=== PATIENT | female | born 1940 | race Caucasian/White ===

== ENCOUNTER → 2016-04-11 | Outpatient (CLI) | payer MEDICARE, BC ==
[~2016-04-11] VITALS: Ht 165.1 cm; Wt 79.5 kg
[~2016-04-11] MED LIST: ALBUTEROL0.83 MG/ML IH; ASPIRIN 81M81 MG/TA2 PO; ASPIRIN E.C. 8181 MG PO; ATIVAN0.5 MG PO; ATROVENT I0.2 MG/1 M IH; BRILINTA90 MG PO; CARDIZEM CD 12120 MG PO; CEPHALEXIN500 M1 PO; CLARITIN 1010 MG/TAB PO; CORGARD20 MG PO; DALIRESP500 MCG PO; ERYTHROMYCIN250 M2 PO; FLONASE NASAL S16 GM NS; LASIX 20MG TABL20 MG PO; LEVAQUIN 5500 MG/TA1 PO; LIPITOR 10MG10 MG PO; MEDROL 4MG DOSPA4 MG PO; MULTAQ400 MG PO; MYSOLINE 5050 MG/TAB PO; NADOLOL20 MG PO; NITROSTAT0.4 MG/TAB SL; NORCO 325 MG-51 TAB PO; PERFOROMIS20 MCG/2 M IH; PLAVIX 75MG TAB75 MG PO; PREDNISONE10 MG PO; PREDNISONE20 MG PO; PRILOSEC 20MG20 MG PO; PRILOSEC20 MG PO; PROAIR HFA0.09 MG/AC IH; PROTONIX 40MG T40 MG PO; PULMICORT0.5 MG/2 M IH; RT ALBUTER2.5 MG/0.5 IH; SINGULAIR10 MG PO; THEOPHYLLINE200 MG PO; TOPAMAX 25MG25 M1 PO; TOPAMAX50 MG PO; TYLENOL 8 HR PO; VALIUM 2MG T2 MG/TAB PO; VENTOLIN0.09 MG IH; ZIAC 10/6.25M1 UDTAB PO; ZITHROMAX Z PA250 MG PO; ZITHROMAX500 M2 PO; ZYRTEC 10MG10 MG PO; [UNRECOGNIZED DRUG - OTHER]
[2016-04-11 10:45] VITALS: BP 142/68; PULSE 94
[2016-04-11 11:30] VITALS: BP 141/70; PULSE 66
== END ==
LOC: COL.RAD 10:00
DX: M54.12 Radiculopathy, cervical region (principal)
CPT/HCPCS: J1100

== ENCOUNTER → 2017-08-30 | Outpatient (CLI) | payer MEDICARE, BC ==
[~2017-08-30] VITALS: Ht 167.6 cm; Wt 83.6 kg
[~2017-08-30] MED LIST changes: +ELIQUIS 5MG PO; +PRADAXA 150MG150 MG PO; +TIKOSYN0.25 MG PO; +ZANTAC 150MG T150 MG PO; +ZEBETA10 MG PO
[2017-08-30 09:53] VITALS: BP 172/84; PULSE 76
== END ==
LOC: COL.RAD 08:55
DX: C34.11 Malignant neoplasm of upper lobe, right bronchus or lung (principal); Z53.8 Procedure and treatment not carried out for other reasons

== ENCOUNTER 2018-02-08 08:55 | Day surgery (SDC) | payer MEDICARE, BC ==
[~2018-02-08] VITALS: Ht 167.6 cm; Wt 84.1 kg
[2018-02-08] MEDS ORDERED: ZEBETA10 MG PO (09:32)
[2018-02-08] MEDS ORDERED: MYSOLINE 5050 MG/TAB PO (09:32)
[2018-02-08] MEDS ORDERED: PROTONIX 40MG T40 MG PO (09:33)
[2018-02-08] MEDS ORDERED: LIPITOR 10MG10 MG PO (09:33)
[2018-02-08] MEDS ORDERED: ALAVERT10 M1 PO (09:33)
[2018-02-08] MEDS ORDERED: TIKOSYN0.25 MG PO (09:34)
[2018-02-08] MEDS ORDERED: ZANTAC 150MG T150 MG PO (09:34)
[2018-02-08] MEDS ORDERED: ASPIRIN 81M81 MG/TA2 PO (09:35)
[2018-02-08] MEDS ORDERED: PRADAXA 150MG150 MG PO (09:35)
[2018-02-08] MEDS ORDERED: ZESTORETIC 12.51 TA1 PO (09:35)
[2018-02-08] MEDS ORDERED: PERFOROMIS20 MCG/2 M IH (09:36)
[2018-02-08] MEDS ORDERED: PULMICORT0.5 MG/2 M IH (09:36)
[2018-02-08] MEDS ORDERED: ATROVENT I0.2 MG/1 M IH (09:37)
[2018-02-08] MEDS ORDERED: ALBUTEROL0.83 MG/ML IH (09:37)
[2018-02-08 09:38] VITALS: BP 138/64; PULSE 73; TEMP 97.9
[2018-02-08] MEDS ORDERED: PROAIR HFA0.09 MG/AC IH (09:38)
[2018-02-08 11:00] VITALS: BP 100/46; PULSE 77; TEMP 98.1
[2018-02-08 11:15] VITALS: BP 105/79; PULSE 69
[2018-02-08 11:30] VITALS: BP 122/56; PULSE 64
== END 2018-02-08 11:55 | disposition home or self-care (01) ==
LOC: SDCO 08:55
DX: K21.9 Gastro-esophageal reflux disease without esophagitis (principal); K22.2 Esophageal obstruction; K44.9 Diaphragmatic hernia without obstruction or gangrene; K22.70 Barrett's esophagus without dysplasia; K59.00 Constipation, unspecified; I10 Essential (primary) hypertension; E78.00 Pure hypercholesterolemia, unspecified; Z92.3 Personal history of irradiation; J43.9 Emphysema, unspecified; Z99.81 Dependence on supplemental oxygen; Z88.1 Allergy status to other antibiotic agents; Z79.01 Long term (current) use of anticoagulants; Z79.82 Long term (current) use of aspirin; Z90.710 Acquired absence of both cervix and uterus; Z85.118 Personal history of other malignant neoplasm of bronchus and lung; Z87.891 Personal history of nicotine dependence
CPT/HCPCS: C1726; J2704; J7030

== ENCOUNTER 2018-07-24 14:46 | Observation (INO) | payer MEDICARE, BC ==
[2018-07-24] VITALS (94 sets, daily range): BP systolic 120–136; BP diastolic 52–69; PULSE 68–73; TEMP 97.6–97.9; O2SAT 76–100
[~2018-07-24] VITALS: Ht 167.6 cm; Wt 87.0 kg
[~2018-07-24 14:46] MED LIST changes: +ALAVERT10 M1 PO; +ZESTORETIC 12.51 TA1 PO
[2018-07-24 15:21] LABS: BASO # 0.1 (0.0-0.2); BASO % 0.5 % (0.0-2.0); EOS # 0.1 (0.0-0.7); EOS % 0.5 % (0-4.0); GRAN % 71.4 % (42.2-75.2); HEMOGLOBIN 11.9 g/dl (12.5-16.0); LYMPH # 1.7 (1.2-3.4); LYMPH % 17.7 % (20.0-51.0); MEAN CELL VOLUME 86 fl (80.0-100.0); MEAN CORPUSCULAR HEMOGLOBIN 29 pg (27.0-31.0); MEAN CORPUSCULAR HGB CONC 33 g/dl (33.0-37.0); MEAN PLATELET VOLUME 10.1 fl (7.4-10.4); MONO # 0.9 (0.1-0.6); MONO % 9.4 % (1.7-9.3); PLATELET COUNT 283 K/mm3 (130-400); RED BLOOD COUNT 4.13 M/mm3 (4.10-5.30); REDCELL DISTRIBUTION WIDTH-CV 12.6 % (11.5-14.5)
[2018-07-24 15:23] LABS: INR 1.2 (0.8-3.0); PROTHROMBIN TIME 13.9 SECONDS (9.7-12.8)
[2018-07-24 15:24] LABS: HEMATOCRIT 35.7 % (37.0-47.0)
[2018-07-24] MEDS ORDERED: VOLTAREN GEL 1%1 TU TP (15:28)
[2018-07-24] MEDS ORDERED: FLONASEALLERGY NS (15:29)
[2018-07-24 15:33] LABS: ALANINE AMINOTRANSFERASE < 6 U/L (9-52); ALKALINE PHOSPHATASE 121 U/L (50-136); ANION GAP 11 mmol/L (7-16); AST,SGOT 23 U/L (15-37); BILIRUBIN,TOTAL 0.6 mg/dL (0.0-1.0); BLOOD UREA NITROGEN 7 mg/dL (7-17); C-REACTIVE PROTEIN 4.5 mg/dL (0.0-0.9); CARBON DIOXIDE 30 mmol/L (22-30); CREATININE, serum 0.71 (0.52-1.25); GLUCOSE 97 mg/dL (74-106); LIPASE 50 U/L (23-300); POTASSIUM 3.7 mmol/L (3.4-5.0); SODIUM 128 mmol/L (137-145); TOTAL PROTEIN 7.2 gm/dL (6.4-8.2)
[2018-07-24 15:36] LABS: CHLORIDE 87 mmol/L (98-107)
[2018-07-24 15:45] LABS: TROPONIN-I < 0.012 ng/mL (0.000-0.035)
[2018-07-24 15:53] LABS: COLLECTION METHOD CLEAN CATCH
[2018-07-24 16:00] LABS: PH 7 (5-8); SQUAMOUS EPITHELIAL 0-2 /hpf; URINE APPEARANCE Clear; URINE BACTERIA None Seen /hpf; URINE BILIRUBIN Negative (NEGATIVE); URINE BLOOD 2+ (NEGATIVE); URINE COLOR Straw; URINE GLUCOSE Negative (NEGATIVE); URINE KETONE Negative (NEGATIVE); URINE LEUKOCYTE ESTERASE Negative (NEGATIVE); URINE NITRATE Negative (NEGATIVE); URINE PROTEIN(semi-quant) Negative (NEGATIVE); URINE RBC 0-2 /hpf; URINE UROBILINOGEN Negative (NEGATIVE)
--- NOTE | 2018-07-24 18:30 | NUR ---
PATIENT ARRIVES TO ICU. CARDIAC MONITORS ATTACHED. PATIENT ORIENTED TO ROOM. CALL LIGHT WITHIN REACH.
--- NOTE | 2018-07-24 18:40 | NUR ---
DR. GLOVER CALLED WITH CARDIOLOGY CONSULT. ORDER FOR NITRO GTT AND NPO AT MIDNIGHT RECEIVED.
--- NOTE | 2018-07-24 19:00 | NUR ---
BEDSIDE REPORT GIVEN TO MAMADOU LOZANO
[2018-07-25] VITALS (644 sets, daily range): BP systolic 94–126; BP diastolic 39–52; PULSE 66–78; TEMP 97.8–98.7; O2SAT 43–100
--- NOTE | 2018-07-25 02:06 | NUR ---
CALLED DR. GLOVER PT'S BP HAD BEEN ON THE 90'S WITH THE LATEST ONE AT 95/40, CURRENTLY ON NITRO DRIP OF 5 MCG, PT DENIES PAIN AT THIS TIME AND VERBALIZED SHE FEELS OKAY. ORIGINAL ORDER OF NITRO DRIP DID NOT HAVE PARAMATERS. PERD DR. RAMÍREZ PHONE ORDER, WILL DISCONTINUE NITRO DRIP NOW. LATEST BP AT 0210 IS 101/53. WILL CONTINUE TO MONITOR.
[2018-07-25 06:10] LABS: BASO % 0.5 % (0.0-2.0); EOS # 0.1 (0.0-0.7); EOS % 1.6 % (0-4.0); GRAN # 4.1 (1.4-6.5); GRAN % 64.9 % (42.2-75.2); HEMOGLOBIN 10.2 g/dl (12.5-16.0); LYMPH # 1.6 (1.2-3.4); LYMPH % 24.6 % (20.0-51.0); MEAN CELL VOLUME 86 fl (80.0-100.0); MEAN CORPUSCULAR HEMOGLOBIN 29 pg (27.0-31.0); MEAN CORPUSCULAR HGB CONC 33 g/dl (33.0-37.0); MEAN PLATELET VOLUME 9.9 fl (7.4-10.4); MONO # 0.5 (0.1-0.6); MONO % 7.9 % (1.7-9.3); PLATELET COUNT 230 K/mm3 (130-400); RED BLOOD COUNT 3.55 M/mm3 (4.10-5.30); REDCELL DISTRIBUTION WIDTH-CV 12.6 % (11.5-14.5)
[2018-07-25 06:13] LABS: HEMATOCRIT 30.5 % (37.0-47.0)
[2018-07-25 06:28] LABS: ANION GAP 7 mmol/L (7-16); BLOOD UREA NITROGEN 6 mg/dL (7-17); CALCIUM 8.4 mg/dL (8.4-10.2); CARBON DIOXIDE 30 mmol/L (22-30); CHLORIDE 91 mmol/L (98-107); CHOLESTEROL 112 mg/dL (120-200); CHOLESTEROL RISK RATIO 3.2; CREATININE, serum 0.72 (0.52-1.25); GLUCOSE 104 mg/dL (74-106); HDL CHOLESTEROL 35 mg/dL; LDL CHOLESTEROL 59 mg/dL; POTASSIUM 3.7 mmol/L (3.4-5.0); SODIUM 128 mmol/L (137-145); TRIGLYCERIDE 89 mg/dL
[2018-07-25 06:42] LABS: TROPONIN-I < 0.012 ng/mL (0.000-0.035)
--- NOTE | 2018-07-25 07:07 | NUR ---
Bedside report recieved from MAMADOU Ferrer. Patient resting in bed with request for bathroom at this time and is assisted with this time. Nitro gtt off, disconnected and on standby. Care assumed.
--- NOTE | 2018-07-25 08:52 | NUR ---
Dr. Dai rounds at this time. Orders as entered CPOE.
--- NOTE | 2018-07-25 10:00 | NUR ---
Dr. Banegas rounds at this time. Orders as entered CPOE.
--- NOTE | 2018-07-25 10:48 | NUR ---
MANUELA student attended clinical rounds and followed up with patient to discuss discharge plan. Also present was patient's granddaughter. Patient lives independently near [place]. Patient PCP is Dr. Rosa Gaytan and she uses [facility] and the [facility]. Patient does not use any DME but is on 2 liters of oxygen at home and receives the oxygen from [facility] Patient reports independence with ADLs. Patient does not have a completed DPOA-HC but was interested in obtaining the form. SW student provided and explained the form. No identified needs at this time. SW to continue to follow.
--- NOTE | 2018-07-25 11:32 | NUR ---
Patient departs with Dynamics Expert at this time for Lexiscan.
--- NOTE | 2018-07-25 12:14 | NUR ---
First visit from the production corrugator. No needs right now.
--- NOTE | 2018-07-25 13:04 | NUR ---
Patient returns from [facility] and is returned to monitors. She denies chest pain with exam. Will call Dr. Banegas to update and discuss POC.
--- NOTE | 2018-07-25 15:30 | NUR ---
Report recieved from Sol CEDILLO. Patient laying in bed with eyes closed, offers no s/s pain or discomfort. Call light at side.
--- NOTE | 2018-07-25 19:10 | NUR ---
Bedside report received from Bhavani Zavaleta RN. Pt sitting in bed at this time with daughter Vannessa at bedside. Questions encouraged at this time.
--- NOTE | 2018-07-25 19:15 | NUR ---
Bedside report given to Blanca CEDILLO
--- NOTE | 2018-07-25 21:00 | NUR ---
Pt assessment complete. Pt resting in bed at this time. Glasses in place on face with personal belongings with in reach. NO skin issues noted and pt denies any known wounds, bruising or scratches. Denies SOA. Pt has a raspy voice noted in conversation. Makes wants and needs known with proper use of the call light demonstrated.
[2018-07-26] VITALS (294 sets, daily range): BP systolic 95–128; BP diastolic 42–72; PULSE 63–71; TEMP 97.9–98.5; O2SAT 70–100
[2018-07-26 05:22] LABS: BASO % 0.5 % (0.0-2.0); EOS # 0.1 (0.0-0.7); EOS % 1.9 % (0-4.0); GRAN # 3.6 (1.4-6.5); GRAN % 60.3 % (42.2-75.2); HEMOGLOBIN 11.2 g/dl (12.5-16.0); LYMPH # 1.7 (1.2-3.4); LYMPH % 28.2 % (20.0-51.0); MEAN CELL VOLUME 86 fl (80.0-100.0); MEAN CORPUSCULAR HEMOGLOBIN 29 pg (27.0-31.0); MEAN CORPUSCULAR HGB CONC 33 g/dl (33.0-37.0); MEAN PLATELET VOLUME 9.8 fl (7.4-10.4); MONO # 0.5 (0.1-0.6); MONO % 8.8 % (1.7-9.3); PLATELET COUNT 233 K/mm3 (130-400); RED BLOOD COUNT 3.89 M/mm3 (4.10-5.30); REDCELL DISTRIBUTION WIDTH-CV 12.5 % (11.5-14.5)
[2018-07-26 05:25] LABS: HEMATOCRIT 33.5 % (37.0-47.0)
[2018-07-26 05:33] LABS: CALCIUM 8.5 mg/dL (8.4-10.2); CREATININE, serum 0.66 (0.52-1.25); POTASSIUM 4.3 mmol/L (3.4-5.0)
--- NOTE | 2018-07-26 07:15 | NUR ---
Bedside report provided to Dangelo CEDILLO. Pt resting in bed at this time with 2 daughters at bedside.
[2018-07-26] MEDS ORDERED: IMDUR 30MG30 MG/TAB PO (11:36)
[2018-07-26] MEDS ORDERED: NITROSTAT0.4 MG/TAB SL (11:37)
--- NOTE | 2018-07-26 11:55 | NUR ---
Both Dr. Dai and Dr. Ball came by to see pt. Pt states if it is okay with MD's she feels good to and wants to go home. Cardiology started pt on new meds and will not be taking pt to cath at this time. Hosp- is okay to d/c pt after road test. VSS, pt denies pain, discomfort, any difficuly breathing. She remains on her previous home ordered 2L NC and tolerating well. Will continue to monitor and update MD as needed.
--- NOTE | 2018-07-26 15:00 | NUR ---
Pt d/c'ed home with family, pt denies pain and discomfort, denies SOB. IVs d/c'ed. D/C education and instruction given to pt and pt verbalized understanting.
== END 2018-07-26 15:00 | disposition home or self-care (01) ==
LOC: COL.ER 14:46 → ICU 16:49
PROVIDERS: Emergency Medicine; ADMIT Hospitalist
DX: R07.89 Other chest pain (principal); E87.1 Hypo-osmolality and hyponatremia; E87.8 Other disorders of electrolyte and fluid balance, not elsewhere classified; D64.9 Anemia, unspecified; R31.9 Hematuria, unspecified; J44.9 Chronic obstructive pulmonary disease, unspecified; G47.33 Obstructive sleep apnea (adult) (pediatric); E78.5 Hyperlipidemia, unspecified; G25.0 Essential tremor; I48.91 Unspecified atrial fibrillation; K21.9 Gastro-esophageal reflux disease without esophagitis; I10 Essential (primary) hypertension; I25.10 Atherosclerotic heart disease of native coronary artery without angina pectoris; I25.2 Old myocardial infarction; Z79.82 Long term (current) use of aspirin; Z85.118 Personal history of other malignant neoplasm of bronchus and lung; Z90.710 Acquired absence of both cervix and uterus; Z95.5 Presence of coronary angioplasty implant and graft; Z87.891 Personal history of nicotine dependence; Z82.49 Family history of ischemic heart disease and other diseases of the circulatory system; Z88.1 Allergy status to other antibiotic agents; Z88.8 Allergy status to other drugs, medicaments and biological substances
CPT/HCPCS: 99232-AI; A9500; G0378; J2405

== ENCOUNTER 2018-08-07 12:07 | Inpatient (IN) | payer MEDICARE, BC ==
[2018-08-07] VITALS (341 sets, daily range): BP systolic 137–159; BP diastolic 58–69; PULSE 76–97; TEMP 97–98.4; O2SAT 94–100
[~2018-08-07] VITALS: Ht 165.1 cm; Wt 85.7 kg
[~2018-08-07 12:07] MED LIST changes: +FLONASEALLERGY NS; +IMDUR 30MG30 MG/TAB PO; +LEVAQUIN 750MG750 M1 PO; +VOLTAREN GEL 1%1 TU TP
[2018-08-07 12:42] LABS: BASO # 0.1 (0.0-0.2); BASO % 0.6 % (0.0-2.0); EOS % 0.3 % (0-4.0); GRAN # 8.2 (1.4-6.5); GRAN % 86.1 % (42.2-75.2); HEMOGLOBIN 11.6 g/dl (12.5-16.0); LYMPH # 0.9 (1.2-3.4); LYMPH % 9.4 % (20.0-51.0); MEAN CELL VOLUME 89 fl (80.0-100.0); MEAN CORPUSCULAR HEMOGLOBIN 28 pg (27.0-31.0); MEAN CORPUSCULAR HGB CONC 32 g/dl (33.0-37.0); MEAN PLATELET VOLUME 9.6 fl (7.4-10.4); MONO # 0.3 (0.1-0.6); PLATELET COUNT 279 K/mm3 (130-400); RED BLOOD COUNT 4.09 M/mm3 (4.10-5.30); REDCELL DISTRIBUTION WIDTH-CV 13.2 % (11.5-14.5)
[2018-08-07 12:43] LABS: HEMATOCRIT 36.3 % (37.0-47.0)
[2018-08-07 12:46] LABS: INR 1.3 (0.8-3.0); PROTHROMBIN TIME 14.3 SECONDS (9.7-12.8)
[2018-08-07 12:54] LABS: ALANINE AMINOTRANSFERASE 10 U/L (9-52); ALBUMIN 4.1 gm/dL (3.5-5.0); ALKALINE PHOSPHATASE 102 U/L (50-136); ANION GAP 8 mmol/L (7-16); AST,SGOT 19 U/L (15-37); BILIRUBIN,TOTAL 0.3 mg/dL (0.0-1.0); BLOOD UREA NITROGEN 12 mg/dL (7-17); CALCIUM 8.9 mg/dL (8.4-10.2); CARBON DIOXIDE 29 mmol/L (22-30); CHLORIDE 98 mmol/L (98-107); CREATININE, serum 0.73 (0.52-1.25); GLUCOSE 91 mg/dL (74-106); POTASSIUM 3.9 mmol/L (3.4-5.0); SODIUM 135 mmol/L (137-145); TOTAL PROTEIN 7.2 gm/dL (6.4-8.2)
[2018-08-07 12:55] LABS: C-REACTIVE PROTEIN < 0.5 mg/dL (0.0-0.9)
[2018-08-07] MEDS ORDERED: PREDNISONE10 MG PO (13:32)
--- NOTE | 2018-08-07 14:43 | NUR ---
REPORT RECEIVED FROM NAHID CEDILLO FROM ED DEPARTMENT
--- NOTE | 2018-08-07 15:10 | NUR ---
PT BROUGHT FROM ED VIA STRETCHER. PT ABLE TO AMBULATE FROM STRETCHER TO ICU BED WITHOUT DIFFICULTY.
[2018-08-07 18:02] LABS: HEMOGLOBIN 11.2 g/dl (12.5-16.0)
[2018-08-07 18:03] LABS: HEMATOCRIT 34.4 % (37.0-47.0)
--- NOTE | 2018-08-07 20:49 | NUR ---
ASSESSMENT COMPLETED. PATIENT IS RESTING IN BED. DENIES PAIN AT THIS TIME. VITALS ARE WITHIN NORMAL LIMITS. WILL CONTINUE TO MONITOR PATIENT.
[2018-08-08] VITALS (401 sets, daily range): BP systolic 96–152; BP diastolic 56–89; PULSE 65–77; TEMP 97.7–98.4; O2SAT 95–100
--- NOTE | 2018-08-08 04:13 | NUR ---
patient has slept well throughout the night. patient had a few coughing spells but insisted this happens very often at home. denies pain at this time. vitals are within normal limits. will continue to monitor patient.
[2018-08-08 05:53] LABS: BASO % 0.2 % (0.0-2.0); GRAN # 5.6 (1.4-6.5); GRAN % 87.9 % (42.2-75.2); HEMOGLOBIN 10.6 g/dl (12.5-16.0); LYMPH # 0.6 (1.2-3.4); LYMPH % 9.2 % (20.0-51.0); MEAN CELL VOLUME 89 fl (80.0-100.0); MEAN CORPUSCULAR HEMOGLOBIN 28 pg (27.0-31.0); MEAN CORPUSCULAR HGB CONC 32 g/dl (33.0-37.0); MEAN PLATELET VOLUME 9.8 fl (7.4-10.4); MONO # 0.1 (0.1-0.6); MONO % 2.2 % (1.7-9.3); PLATELET COUNT 239 K/mm3 (130-400); RED BLOOD COUNT 3.74 M/mm3 (4.10-5.30); REDCELL DISTRIBUTION WIDTH-CV 13.2 % (11.5-14.5)
[2018-08-08 05:56] LABS: HEMATOCRIT 33.2 % (37.0-47.0)
[2018-08-08 06:08] LABS: CALCIUM 8.5 mg/dL (8.4-10.2); CREATININE, serum 0.61 (0.52-1.25)
--- NOTE | 2018-08-08 07:00 | NUR ---
Bedside report received from MAMADOU Chaudhry.
--- NOTE | 2018-08-08 07:43 | NUR ---
gave report to [facility] and aneesh, director nursing service.
--- NOTE | 2018-08-08 09:48 | NUR ---
Initial visit; Patient thanked Electrical Logging Operator for looking in on her and wishing her well and keeping her in v/stol landing signal officer's prayers.
--- NOTE | 2018-08-08 10:49 | NUR ---
MANUELA kelly attended clinical rounds and met with patient to dicuss discharge plan. Patient lives alone in [place]. Patient's PCP is Dr. Rosa Gaytan and she uses [facility] or the [facility]. Patient and patient's daughter report that patient saw both Dr. Rosa Gaytan and Dr. Talha Gaytan on 07/31. Patient is on 2L of oxygen at home and receives the oxygen from [facility]. Patient does not have a DPOA-HC completed. MANUELA kelly provided the form to her during her last stay and patient reports she is still thinking about what to do. Patient plans to return home upon discharge. No identified needs at this time. Patient is to move upstairs today if bed is available.
--- NOTE | 2018-08-08 16:30 | NUR ---
Plan for bronchoscopy at 1600 08/09/18. Patient and anesthesia aware.
--- NOTE | 2018-08-08 16:54 | NUR ---
SHAD RN REPORTING AT BEDSIDE PT'S BRONCHOSCOPY WILL BE 1600.
--- NOTE | 2018-08-08 17:06 | NUR ---
PATIENT TRANSFERRED TO MEDICAL FLOOR. REPORT GIVEN TO MAMADOU SOLORIO.
--- NOTE | 2018-08-08 20:14 | NUR ---
Pt resting in bed, family in room, no C/O pain at this time, shift assessments complete, left Pt call light in reach, bed in lowest position.
[2018-08-09 03:58] VITALS: BP 144/58; PULSE 81; TEMP 98
--- NOTE | 2018-08-09 05:24 | NUR ---
Pt slept through the night, no C/O pain, Vs have remained stable.
[2018-08-09 07:38] VITALS: BP 153/61; PULSE 62; TEMP 98
--- NOTE | 2018-08-09 08:38 | NUR ---
Pt assessment complete. Pt is sitting up in bed, just finished with breakfast. Pt denies any pain at this time. Pt denies SOB at rest, currently on 2L O2 via NC. Plan to have bronch at 1600 discussed with patient. Pt denies any N/V. No needs at this time. Call light within reach. Will continue to monitor.
--- NOTE | 2018-08-09 10:42 | NUR ---
Follow-up visit; Patient states she is doing better and thanked Payment Collector for offering her encouragement and God's blessings.
[2018-08-09 12:42] VITALS: BP 144/55; PULSE 74; TEMP 98.1
--- NOTE | 2018-08-09 13:17 | NUR ---
SW and SW student attended clinical rounds. The patient is to discharge today, 08/09. SW followed up with the patient and patient's daughter, Vonnie, to review discharge plan and to discuss home health services. The patient reports that she does not need home health and that she is not interested in it at this time. No additional needs at this time.
--- NOTE | 2018-08-09 14:26 | NUR ---
Discharge paperwork and instructions reviewed with patient. IV to LAC dc'd, catheter tip intact. All questions answered at this time. No further needs.
--- NOTE | 2018-08-09 15:17 | NUR ---
Pt walked out of facility at this time.
== END 2018-08-09 15:18 | disposition home or self-care (01) | DRG 378 ==
LOC: COL.ER 12:07 → ICU 13:53 → MEDICAL 13:53 → ICU 08-08 08:43 → MEDICAL 08-08 17:01
PROVIDERS: Family Medicine; ADMIT Hospitalist
DX: K92.0 Hematemesis (principal); J96.11 Chronic respiratory failure with hypoxia; I16.0 Hypertensive urgency; R04.0 Epistaxis; I10 Essential (primary) hypertension; I25.10 Atherosclerotic heart disease of native coronary artery without angina pectoris; J44.9 Chronic obstructive pulmonary disease, unspecified; I48.91 Unspecified atrial fibrillation; Z95.5 Presence of coronary angioplasty implant and graft; Z95.0 Presence of cardiac pacemaker; Z85.110 Personal history of malignant carcinoid tumor of bronchus and lung; K21.9 Gastro-esophageal reflux disease without esophagitis; G47.33 Obstructive sleep apnea (adult) (pediatric); Z87.891 Personal history of nicotine dependence; G25.0 Essential tremor; D64.9 Anemia, unspecified
CPT/HCPCS: 99222-AI; 99231-AI; 99239; J0360; J7030; J7512; Q9967

== ENCOUNTER → 2018-09-25 | Outpatient (CLI) | payer MEDICARE, BC | LOC: MC.RAD 14:20 | DX: Z12.31 Encounter for screening mammogram for malignant neoplasm of breast (principal) ==

== ENCOUNTER 2019-03-03 09:06 | Day surgery (SDC) | payer MEDICARE, BC ==
[~2019-03-03] VITALS: Ht 165.1 cm; Wt 81.7 kg
[~2019-03-03 09:06] MED LIST changes: +DOXYCYCLINE 10100 MG PO
[2019-03-03 09:45] VITALS: BP 143/61; PULSE 66; TEMP 97.7
--- NOTE | 2019-03-03 09:53 | NUR ---
TO RM AT 0915- CALL LIGHT IN REACH DAUGHTER AT BEDSIDE.
[2019-03-03] MEDS ORDERED: LIPITOR 10MG10 MG PO (10:11)
[2019-03-03] MEDS ORDERED: CLARITIN 1010 MG/TAB PO (10:11)
[2019-03-03] MEDS ORDERED: FLONASEALLERGY NS (10:13)
[2019-03-03 11:25] VITALS: BP 145/87; PULSE 77
--- NOTE | 2019-03-03 11:25 | NUR ---
TO RM 6 PER CART FROM ENDOSCOPY. ALERT ORIETED X 3. WEARING 02 AT 2L PER NC, COUGHING LARGE AMOUNTS OF CLEAR PHLEGM. AND SHORT OF BREATH AFTER WALKING TO RECLINER. SON AT BEDSIDE. RECEIVED WATER
[2019-03-03 11:40] VITALS: BP 138/29; PULSE 71
--- NOTE | 2019-03-03 11:40 | NUR ---
DR DORSEY INTO TALK WITH PATIENT AND SON.
[2019-03-03 11:55] VITALS: BP 140/83; PULSE 71
--- NOTE | 2019-03-03 11:55 | NUR ---
COUGHING GETTING WORSE. CONTINUES TO COUGH PHLEGM.
[2019-03-03 12:00] VITALS: BP 101/63; PULSE 79
--- NOTE | 2019-03-03 12:00 | NUR ---
RECEIVED DUONEB TREATMENT PER ORDER BY DR DORSEY
--- NOTE | 2019-03-03 12:23 | NUR ---
RECEIVED DISCHARGE INSTRUCTIONS AND VERBALIZED UNDERSTANDING. DISCONTINUED IV AND INT- CATHETER INTACT. PATIENT GETTING DRESSED.
--- NOTE | 2019-03-03 12:35 | NUR ---
DISCHARGED PER WC BY NURSING STAFF TO PRIVATE CAR IN CARE OF SONKurtis ANNA.
== END 2019-03-03 12:52 | disposition home or self-care (01) ==
LOC: SDCO 09:06
DX: R13.12 Dysphagia, oropharyngeal phase (principal); K22.4 Dyskinesia of esophagus; K44.9 Diaphragmatic hernia without obstruction or gangrene; K22.70 Barrett's esophagus without dysplasia; K59.00 Constipation, unspecified; K21.9 Gastro-esophageal reflux disease without esophagitis; J43.9 Emphysema, unspecified; E78.00 Pure hypercholesterolemia, unspecified; I25.10 Atherosclerotic heart disease of native coronary artery without angina pectoris; I11.0 Hypertensive heart disease with heart failure; I50.9 Heart failure, unspecified; I25.2 Old myocardial infarction; G47.33 Obstructive sleep apnea (adult) (pediatric); F32.9 Major depressive disorder, single episode, unspecified; M19.90 Unspecified osteoarthritis, unspecified site; Z88.8 Allergy status to other drugs, medicaments and biological substances; Z88.1 Allergy status to other antibiotic agents; Z79.82 Long term (current) use of aspirin; Z86.010 Personal history of colon polyps; Z92.3 Personal history of irradiation; Z85.118 Personal history of other malignant neoplasm of bronchus and lung; Z90.710 Acquired absence of both cervix and uterus; Z87.891 Personal history of nicotine dependence; Z95.0 Presence of cardiac pacemaker; Z79.01 Long term (current) use of anticoagulants
CPT/HCPCS: J2704; J7030

== ENCOUNTER 2019-04-06 11:47 | Emergency (ER) | payer MEDICARE, BC, MEDICAID ==
[~2019-04-06] VITALS: Ht 165.1 cm; Wt 77.8 kg
[2019-04-06 12:01] VITALS: TEMP 97.8
[2019-04-06 14:16] LABS: STREP SCREEN NEGATIVE
[2019-04-06 16:02] LABS: ALANINE AMINOTRANSFERASE 17 U/L (9-52); ALBUMIN 3.6 gm/dL (3.5-5.0); ALKALINE PHOSPHATASE 106 U/L (50-136); ANION GAP 8 mmol/L (7-16); AST,SGOT 14 U/L (15-37); BILIRUBIN,TOTAL 0.4 mg/dL (0.0-1.0); BLOOD UREA NITROGEN 5 mg/dL (7-17); CALCIUM 8.6 mg/dL (8.4-10.2); CARBON DIOXIDE 28 mmol/L (22-30); CHLORIDE 99 mmol/L (98-107); CREATININE, serum 0.62 (0.52-1.25); GLUCOSE 115 mg/dL (74-106); POTASSIUM 3.5 mmol/L (3.4-5.0); SODIUM 135 mmol/L (137-145); TOTAL PROTEIN 6.4 gm/dL (6.4-8.2)
[2019-04-06] MEDS ORDERED: PREDNISONE20 MG PO (16:12)
[2019-04-06] MEDS ORDERED: ZITHROMAX Z PA250 MG PO (16:12)
[2019-04-06 16:14] LABS: TROPONIN-I < 0.012 ng/mL (0.000-0.035)
[2019-04-06 16:20] VITALS: BP 132/61; PULSE 76
[2019-04-06 16:28] LABS: BASO # 0.1 (0.0-0.2); BASO % 0.7 % (0.0-2.0); EOS # 0.1 (0.0-0.7); EOS % 0.9 % (0-4.0); GRAN # 5.4 (1.4-6.5); GRAN % 72.8 % (42.2-75.2); HEMOGLOBIN 10.6 g/dl (12.5-16.0); LYMPH # 1.3 (1.2-3.4); LYMPH % 18.2 % (20.0-51.0); MEAN CELL VOLUME 83 fl (80.0-100.0); MEAN CORPUSCULAR HEMOGLOBIN 27 pg (27.0-31.0); MEAN CORPUSCULAR HGB CONC 32 g/dl (33.0-37.0); MEAN PLATELET VOLUME 10.8 fl (7.4-10.4); MONO # 0.5 (0.1-0.6); MONO % 7.1 % (1.7-9.3); PLATELET COUNT 243 K/mm3 (130-400); RED BLOOD COUNT 3.98 M/mm3 (4.10-5.30); REDCELL DISTRIBUTION WIDTH-CV 14.6 % (11.5-14.5)
[2019-04-06 16:32] LABS: HEMATOCRIT 33.2 % (37.0-47.0)
== END 2019-04-06 16:41 | disposition home or self-care (01) ==
LOC: COL.ER 11:47
PROVIDERS: Emergency Medicine
DX: J20.9 Acute bronchitis, unspecified (principal); I25.10 Atherosclerotic heart disease of native coronary artery without angina pectoris; K21.9 Gastro-esophageal reflux disease without esophagitis; I48.91 Unspecified atrial fibrillation; I10 Essential (primary) hypertension; E78.5 Hyperlipidemia, unspecified; J44.9 Chronic obstructive pulmonary disease, unspecified; Z90.710 Acquired absence of both cervix and uterus; Z87.891 Personal history of nicotine dependence; Z79.82 Long term (current) use of aspirin; Z90.89 Acquired absence of other organs
CPT/HCPCS: J2930; J3475; J7040

== ENCOUNTER 2019-05-19 08:53 | Outpatient (RCR) | payer MEDICARE, BC, MEDICAID ==
[2019-06-09] MEDS ORDERED: ZYRTEC 10MG10 MG PO (08:48)
[2019-06-09] MEDS ORDERED: ULTRAM 50MG TAB50 MG PO (08:49)
[2019-06-09] MEDS ORDERED: ULTRAM ER100 MG PO (08:49)
[2019-06-09] MEDS ORDERED: PRINIVIL20 MG PO (08:50)
[2019-06-09] MEDS ORDERED: PEPCID AC 10MG10 MG PO (08:52)
[2019-06-09] MEDS ORDERED: IMDUR 30MG30 MG/TAB PO (08:52)
[2019-06-09] MEDS ORDERED: TIKOSYN0.5 MG PO (08:54)
[2019-06-11] MEDS ORDERED: PRINZIDE 12.5 M1 TA1 PO (09:29)
== END 2019-08-17 | disposition still patient (30) ==
LOC: WSST
DX: R13.12 Dysphagia, oropharyngeal phase (principal); R13.14 Dysphagia, pharyngoesophageal phase; J44.9 Chronic obstructive pulmonary disease, unspecified; K21.9 Gastro-esophageal reflux disease without esophagitis

== ENCOUNTER 2019-06-09 19:20 | Emergency (ER) | payer MEDICARE, BC, MEDICAID ==
[~2019-06-09] VITALS: Ht 165.1 cm; Wt 72.7 kg
[~2019-06-09 19:20] MED LIST changes: +PEPCID AC 10MG10 MG PO; +PRINIVIL20 MG PO; +TIKOSYN0.5 MG PO; +ULTRAM 50MG TAB50 MG PO; +ULTRAM ER100 MG PO
[2019-06-09 19:32] VITALS: TEMP 97.9
[2019-06-09 20:42] LABS: BASO # 0.1 (0.0-0.2); BASO % 0.9 % (0.0-2.0); EOS # 0.1 (0.0-0.7); EOS % 1.1 % (0-4.0); GRAN # 3.5 (1.4-6.5); GRAN % 62.7 % (42.2-75.2); HEMOGLOBIN 11.3 g/dl (12.5-16.0); LYMPH # 1.4 (1.2-3.4); LYMPH % 25.9 % (20.0-51.0); MEAN CELL VOLUME 82 fl (80.0-100.0); MEAN CORPUSCULAR HEMOGLOBIN 27 pg (27.0-31.0); MEAN CORPUSCULAR HGB CONC 33 g/dl (33.0-37.0); MEAN PLATELET VOLUME 10.4 fl (7.4-10.4); MONO # 0.5 (0.1-0.6); MONO % 9.2 % (1.7-9.3); PLATELET COUNT 216 K/mm3 (130-400); RED BLOOD COUNT 4.21 M/mm3 (4.10-5.30); REDCELL DISTRIBUTION WIDTH-CV 15.3 % (11.5-14.5)
[2019-06-09 20:50] LABS: HEMATOCRIT 34.7 % (37.0-47.0)
[2019-06-09 20:59] LABS: ALANINE AMINOTRANSFERASE 18 U/L (9-52); ALBUMIN 3.9 gm/dL (3.5-5.0); ALKALINE PHOSPHATASE 104 U/L (50-136); ANION GAP 8 mmol/L (7-16); AST,SGOT 14 U/L (15-37); BILIRUBIN,TOTAL 0.4 mg/dL (0.0-1.0); BLOOD UREA NITROGEN 6 mg/dL (7-17); C-REACTIVE PROTEIN 0.6 mg/dL (0.0-0.9); CALCIUM 8.9 mg/dL (8.4-10.2); CARBON DIOXIDE 30 mmol/L (22-30); CHLORIDE 97 mmol/L (98-107); CREATININE, serum 0.63 (0.52-1.25); GLUCOSE 103 mg/dL (74-106); LIPASE 35 U/L (23-300); POTASSIUM 3.6 mmol/L (3.4-5.0); SODIUM 135 mmol/L (137-145); TOTAL PROTEIN 6.7 gm/dL (6.4-8.2)
[2019-06-09 21:10] LABS: TROPONIN-I < 0.012 ng/mL (0.000-0.035)
[2019-06-09 22:30] VITALS: BP 179/72; PULSE 66
== END 2019-06-09 22:30 | disposition home or self-care (01) ==
LOC: COL.ER 19:20
PROVIDERS: Emergency Medicine
DX: K22.2 Esophageal obstruction (principal); R91.8 Other nonspecific abnormal finding of lung field; K21.9 Gastro-esophageal reflux disease without esophagitis; I48.91 Unspecified atrial fibrillation; I25.10 Atherosclerotic heart disease of native coronary artery without angina pectoris; I10 Essential (primary) hypertension; Z87.891 Personal history of nicotine dependence; Z95.9 Presence of cardiac and vascular implant and graft, unspecified; Z79.51 Long term (current) use of inhaled steroids
CPT/HCPCS: J2405; J7030

== ENCOUNTER 2019-06-11 09:05 | Outpatient (CLI) | payer MEDICARE, BC, MEDICAID ==
[2019-06-11] VITALS (13 sets, daily range): BP systolic 114–184; BP diastolic 52–85; PULSE 60–86
[~2019-06-11] VITALS: Ht 165.1 cm; Wt 75.1 kg
[2019-06-11] MEDS ORDERED: PRINZIDE 12.5 M1 TA1 PO (09:29)
--- NOTE | 2019-06-11 10:10 | NUR ---
PT WAS TAKEN TO CT IN WHEELCHAIR. PT PLACED ON TABLE PRONE AND MONITORING EQUIPMENT PLACED. IMAGES TAKEN AND SENT.
--- NOTE | 2019-06-11 10:25 | NUR ---
VERSED 0.5 MG AND FENTANYL 25 MCG GIVEN IVSP
--- NOTE | 2019-06-11 10:30 | NUR ---
MONITORING EQUIPMENT REMOVED. PT ASSISTED TO ROLL OVER TO CART. PT TAKEN FOR CXR.
--- NOTE | 2019-06-11 12:12 | NUR ---
sPOKE WITH MARQUES Paiz FOR PT TO DISCHARGE IN 30 MINUTES.
--- NOTE | 2019-06-11 12:59 | NUR ---
Per pt report she usually takes breathing tx this time each day.Patient requesting breathing tx.Pt daughter has questions,inquiring about staying overnight.Dr cain came to visit with pt and daughter.Orders received to discharge home.Per Dr Cain pt will take breathing tx at home with her usual home regiment.Discharge instructions given to pt and family.pt verbalizes understanding.INT removed,catheter tip intact.Pt escorted out via wheelchair by this nurse.Pt discharges home on 2 liters oxygen as per home regimen with her portable tank.
== END 2019-06-11 13:06 | disposition home or self-care (01) ==
LOC: COL.RAD 09:05
DX: C34.11 Malignant neoplasm of upper lobe, right bronchus or lung (principal); J95.811 Postprocedural pneumothorax
CPT/HCPCS: J2250; J3010

== ENCOUNTER → 2019-06-17 | Outpatient (CLI) | payer MEDICARE, BC, MEDICAID ==
[~2019-06-17] MED LIST changes: +PRINZIDE 12.5 M1 TA1 PO
== END ==
LOC: COL.RAD 07:18
DX: K21.9 Gastro-esophageal reflux disease without esophagitis (principal); R14.2 Eructation
CPT/HCPCS: A9541

== ENCOUNTER 2019-10-17 07:29 | Day surgery (SDC) | payer MEDICARE, BC, MEDICAID ==
[~2019-10-17] VITALS: Ht 165.1 cm; Wt 69.1 kg
[2019-10-17] MEDS ORDERED: CARTIA XT180 MG PO (08:13)
[2019-10-17] MEDS ORDERED: NORVASC 5MG5 MG/TAB PO (08:14)
[2019-10-17 08:25] VITALS: BP 115/63; PULSE 70; TEMP 70
[2019-10-17 08:50] VITALS: BP 108/43; PULSE 68; TEMP 97.8
--- NOTE | 2019-10-17 08:50 | NUR ---
PT TO BAY 2 ON CART FROM PROCEDURE ROOM. PT WALKS WITH ASSITANCE TO CHAIR IN BAY 2. PT DENIES C/O. VITAL SIGNS STABLE. CALL LIGHT NEXT TO PT.
[2019-10-17 09:05] VITALS: BP 99/42; PULSE 60
--- NOTE | 2019-10-17 09:05 | NUR ---
PT CONTINUES TO DENY C/O. VITAL SIGNS STABLE. PT EATING PUDDING AND DRINKING WATER. CALL LIGHT NEXT TO PT.
[2019-10-17 09:20] VITALS: BP 105/45; PULSE 60
--- NOTE | 2019-10-17 09:20 | NUR ---
PT CONTINUES TO DENY C/O. VITAL SIGNS STABLE. DR NGUYỄN IN BAY 2 TALKING TO PT. DISCHARGE INSTRUCTIONS REVIEWED WITH PT. PT VERBALIZES UNDERSTANDING. IV DISCONTINUED. CATHETER INTACT.
--- NOTE | 2019-10-17 09:45 | NUR ---
PT CONTINUES TO DENY C/O. PT WHEELCHAIR RIDE TO CAR BY NURSE TO PT DAUGHTER CAR.
== END 2019-10-17 09:50 | disposition home or self-care (01) ==
LOC: SDCO 07:29
DX: K22.2 Esophageal obstruction (principal); K44.9 Diaphragmatic hernia without obstruction or gangrene; K21.9 Gastro-esophageal reflux disease without esophagitis; K22.4 Dyskinesia of esophagus; K22.70 Barrett's esophagus without dysplasia; E78.00 Pure hypercholesterolemia, unspecified; J43.9 Emphysema, unspecified; I25.10 Atherosclerotic heart disease of native coronary artery without angina pectoris; I11.0 Hypertensive heart disease with heart failure; I50.9 Heart failure, unspecified; I25.2 Old myocardial infarction; G47.33 Obstructive sleep apnea (adult) (pediatric); F32.9 Major depressive disorder, single episode, unspecified; M19.90 Unspecified osteoarthritis, unspecified site; Z85.118 Personal history of other malignant neoplasm of bronchus and lung; Z88.1 Allergy status to other antibiotic agents; Z88.8 Allergy status to other drugs, medicaments and biological substances; Z79.82 Long term (current) use of aspirin; Z79.01 Long term (current) use of anticoagulants; Z90.710 Acquired absence of both cervix and uterus; Z95.5 Presence of coronary angioplasty implant and graft; Z99.81 Dependence on supplemental oxygen
CPT/HCPCS: C1726; J2704; J7120

== ENCOUNTER 2020-07-02 17:12 | Inpatient (IN) | payer MEDICARE, BC, MEDICAID ==
[~2020-07-02] VITALS: Ht 165.1 cm; Wt 68.2 kg
[2020-07-02] VITALS (10 sets, daily range): BP systolic 127–189; BP diastolic 37–72; PULSE 66–76; TEMP 98.1–98.8
[~2020-07-02 17:12] MED LIST changes: +APRESOLINE 10MG10 MG PO; +CARDIZEM CD 18180 MG PO; +CARTIA XT180 MG PO; +FERROUS SU325 MG/TAB PO; +LEVAQUIN 2250 MG/TAB PO; +MIRALAX PA17 GM/Dose PO; +NORVASC 5MG5 MG/TAB PO; +PEPCID 20MG TAB20 MG PO; +PRINIVIL10 MG PO; +PRINIVIL40 MG PO; +PROAIR DIGIHAL90 MCG IH; +TYLENOL 325MG325 MG PO; +ZOLOFT 25MG25 MG PO
[2020-07-02 18:00] LABS: BASO # 0.1 (0.0-0.2); EOS # 0.1 (0.0-0.7); EOS % 1.3 % (0-4.0); GRAN # 6.8 (1.4-6.5); GRAN % 78.4 % (42.2-75.2); LYMPH # 0.9 (1.2-3.4); MEAN CELL VOLUME 81 fl (80.0-100.0); MEAN CORPUSCULAR HGB CONC 31 g/dl (33.0-37.0); MEAN PLATELET VOLUME 10.5 fl (7.4-10.4); MONO # 0.8 (0.1-0.6); MONO % 8.8 % (1.7-9.3); PLATELET COUNT 325 K/mm3 (130-400); RED BLOOD COUNT 2.18 M/mm3 (4.10-5.30); REDCELL DISTRIBUTION WIDTH-CV 14.7 % (11.5-14.5)
[2020-07-02 18:02] LABS: MEAN CORPUSCULAR HEMOGLOBIN 25 pg (27.0-31.0)
[2020-07-02 18:03] LABS: HEMATOCRIT 17.7 % (37.0-47.0); HEMOGLOBIN 5.4 g/dl (12.5-16.0)
[2020-07-02 18:15] LABS: ALANINE AMINOTRANSFERASE 20 U/L (4-34); ALBUMIN 3.5 gm/dL (3.5-5.0); ALKALINE PHOSPHATASE 94 U/L (50-136); ANION GAP 8 mmol/L (7-16); AST,SGOT 22 U/L (15-37); BILIRUBIN,TOTAL < 0.1 mg/dL (0.0-1.0); BLOOD UREA NITROGEN 11 mg/dL (7-17); C-REACTIVE PROTEIN 1.6 mg/dL (0.0-0.9); CALCIUM 8.5 mg/dL (8.4-10.2); CARBON DIOXIDE 27 mmol/L (22-30); CHLORIDE 93 mmol/L (98-107); CREATININE, serum 0.77 (0.52-1.25); GLUCOSE 127 mg/dL (74-106); POTASSIUM 3.8 mmol/L (3.4-5.0); SODIUM 128 mmol/L (137-145); TOTAL PROTEIN 5.9 gm/dL (6.4-8.2)
[2020-07-02 21:48] LABS: COLLECTION METHOD CLEAN CATCH
[2020-07-02] MEDS ORDERED: PULMICORT0.5 MG/2 M IH (21:52)
[2020-07-02 21:56] LABS: PH 7 (5-8); SQUAMOUS EPITHELIAL 0-2 /hpf; URINE APPEARANCE Clear; URINE BACTERIA None Seen /hpf; URINE BILIRUBIN Negative (NEGATIVE); URINE BLOOD Negative (NEGATIVE); URINE COLOR Straw; URINE GLUCOSE Negative (NEGATIVE); URINE KETONE Negative (NEGATIVE); URINE LEUKOCYTE ESTERASE Negative (NEGATIVE); URINE NITRATE Negative (NEGATIVE); URINE PROTEIN(semi-quant) Negative (NEGATIVE); URINE RBC 0-2 /hpf; URINE UROBILINOGEN Negative (NEGATIVE)
[2020-07-02 22:15] LABS: INR 1.4 (0.8-3.0); PROTHROMBIN TIME 15.6 SECONDS (9.7-12.8)
[2020-07-03] VITALS (8 sets, daily range): BP systolic 143–177; BP diastolic 44–100; PULSE 63–84; TEMP 97.9–98.7
[2020-07-03 06:55] LABS: BASO % 0.5 % (0.0-2.0); EOS # 0.1 (0.0-0.7); EOS % 0.8 % (0-4.0); GRAN # 5.7 (1.4-6.5); GRAN % 75.1 % (42.2-75.2); LYMPH % 13.6 % (20.0-51.0); MEAN CELL VOLUME 81 fl (80.0-100.0); MEAN CORPUSCULAR HGB CONC 31 g/dl (33.0-37.0); MEAN PLATELET VOLUME 9.9 fl (7.4-10.4); MONO # 0.7 (0.1-0.6); MONO % 9.6 % (1.7-9.3); PLATELET COUNT 249 K/mm3 (130-400); RED BLOOD COUNT 3.38 M/mm3 (4.10-5.30); REDCELL DISTRIBUTION WIDTH-CV 14.6 % (11.5-14.5)
[2020-07-03 06:58] LABS: HEMATOCRIT 27.4 % (37.0-47.0); HEMOGLOBIN 8.6 g/dl (12.5-16.0); MEAN CORPUSCULAR HEMOGLOBIN 25 pg (27.0-31.0)
[2020-07-03 07:03] LABS: CALCIUM 8.3 mg/dL (8.4-10.2); CREATININE, serum 0.67 (0.52-1.25); POTASSIUM 3.3 mmol/L (3.4-5.0)
[2020-07-03 07:14] LABS: TROPONIN-I 6 HR POST INITIAL 0.033 ng/mL (0.000-0.034)
[2020-07-03 08:40] LABS: IRON,SERUM 326 ug/dL (35-150)
[2020-07-03 09:05] LABS: TOTAL IRON BINDING CAPACITY 455 ug/dL (265-497)
[2020-07-04] VITALS (14 sets, daily range): BP systolic 106–148; BP diastolic 40–69; PULSE 59–94; TEMP 70–98.4
[2020-07-04 06:21] LABS: BASO % 0.6 % (0.0-2.0); EOS # 0.2 (0.0-0.7); GRAN # 4.6 (1.4-6.5); GRAN % 72.3 % (42.2-75.2); LYMPH % 15.4 % (20.0-51.0); MEAN CELL VOLUME 83 fl (80.0-100.0); MEAN CORPUSCULAR HGB CONC 31 g/dl (33.0-37.0); MEAN PLATELET VOLUME 10.3 fl (7.4-10.4); MONO # 0.5 (0.1-0.6); MONO % 8.4 % (1.7-9.3); PLATELET COUNT 214 K/mm3 (130-400); RED BLOOD COUNT 3.21 M/mm3 (4.10-5.30); REDCELL DISTRIBUTION WIDTH-CV 14.6 % (11.5-14.5)
[2020-07-04 06:25] LABS: INR 1.2 (0.8-3.0); PROTHROMBIN TIME 13.7 SECONDS (9.7-12.8)
[2020-07-04 06:28] LABS: HEMATOCRIT 26.5 % (37.0-47.0); HEMOGLOBIN 8.1 g/dl (12.5-16.0); MEAN CORPUSCULAR HEMOGLOBIN 25 pg (27.0-31.0)
[2020-07-04 12:33] LABS: ANION GAP 5 mmol/L (7-16); BLOOD UREA NITROGEN 4 mg/dL (7-17); CALCIUM 8.5 mg/dL (8.4-10.2); CARBON DIOXIDE 33 mmol/L (22-30); CHLORIDE 95 mmol/L (98-107); GLUCOSE 107 mg/dL (74-106); POTASSIUM 3.9 mmol/L (3.4-5.0); SODIUM 133 mmol/L (137-145)
[2020-07-04 12:45] LABS: TROPONIN-I < 0.012 ng/mL (0.000-0.035)
[2020-07-05 04:21] VITALS: BP 108/69; PULSE 73; TEMP 98.6
[2020-07-05 06:07] LABS: BASO % 0.4 % (0.0-2.0); EOS # 0.2 (0.0-0.7); EOS % 2.4 % (0-4.0); GRAN # 8.4 (1.4-6.5); GRAN % 83.7 % (42.2-75.2); LYMPH # 0.6 (1.2-3.4); MEAN CELL VOLUME 84 fl (80.0-100.0); MEAN CORPUSCULAR HGB CONC 30 g/dl (33.0-37.0); MEAN PLATELET VOLUME 9.5 fl (7.4-10.4); MONO # 0.7 (0.1-0.6); MONO % 6.9 % (1.7-9.3); PLATELET COUNT 242 K/mm3 (130-400); RED BLOOD COUNT 3.25 M/mm3 (4.10-5.30); REDCELL DISTRIBUTION WIDTH-CV 14.7 % (11.5-14.5)
[2020-07-05 06:16] LABS: CALCIUM 8.6 mg/dL (8.4-10.2); CREATININE, serum 0.62 (0.52-1.25); POTASSIUM 4.4 mmol/L (3.4-5.0)
[2020-07-05 06:22] LABS: HEMATOCRIT 27.2 % (37.0-47.0); HEMOGLOBIN 8.2 g/dl (12.5-16.0); MEAN CORPUSCULAR HEMOGLOBIN 25 pg (27.0-31.0)
[2020-07-05 08:05] VITALS: BP 151/40; PULSE 78; TEMP 98.2
[2020-07-05 11:34] VITALS: BP 147/55; PULSE 67; TEMP 98.4
[2020-07-05 16:37] VITALS: BP 157/56; PULSE 72; TEMP 98.2
[2020-07-05 19:15] VITALS: BP 177/53; PULSE 73; TEMP 97.8
[2020-07-05 23:40] VITALS: BP 182/56; PULSE 74; TEMP 97.6
[2020-07-06] VITALS (11 sets, daily range): BP systolic 122–185; BP diastolic 36–74; PULSE 59–88; TEMP 97.8–98
[2020-07-06 06:46] LABS: MEAN CELL VOLUME 81 fl (80.0-100.0); MEAN CORPUSCULAR HGB CONC 32 g/dl (33.0-37.0); MEAN PLATELET VOLUME 10.6 fl (7.4-10.4); PLATELET COUNT 238 K/mm3 (130-400); RED BLOOD COUNT 3.19 M/mm3 (4.10-5.30); REDCELL DISTRIBUTION WIDTH-CV 14.8 % (11.5-14.5)
[2020-07-06 06:54] LABS: HEMATOCRIT 25.8 % (37.0-47.0); HEMOGLOBIN 8.3 g/dl (12.5-16.0); MEAN CORPUSCULAR HEMOGLOBIN 26 pg (27.0-31.0)
[2020-07-06 06:58] LABS: CALCIUM 8.3 mg/dL (8.4-10.2); CREATININE, serum 0.45 (0.52-1.25); POTASSIUM 3.7 mmol/L (3.4-5.0)
[2020-07-06 07:23] LABS: BAND 15 % (0-10); HYPOCHROMIA 1+; LYMPHOCYTE 1 % (20.0-51.0); METAMYELOCYTE 1 % (0-0); NEUTROPHILS 79 % (42.0-75.2)
[2020-07-06 07:24] LABS: ANISOCYTOSIS 1+; PLATELET ESTIMATE NORMAL (NORMAL)
[2020-07-06 15:43] LABS: CALCIUM 8.5 mg/dL (8.4-10.2); CREATININE, serum 0.49 (0.52-1.25); POTASSIUM 4.8 mmol/L (3.4-5.0)
[2020-07-06 16:41] LABS: COLLECTION METHOD CLEAN CATCH
[2020-07-06 16:47] LABS: MUCOUS Present /lpf; PH 5 (5-8); URINE APPEARANCE Hazy; URINE BACTERIA Rare /hpf; URINE BILIRUBIN Negative (NEGATIVE); URINE BLOOD 1+ (NEGATIVE); URINE COLOR Yellow; URINE GLUCOSE Negative (NEGATIVE); URINE KETONE Negative (NEGATIVE); URINE LEUKOCYTE ESTERASE 1+ (NEGATIVE); URINE NITRATE Negative (NEGATIVE); URINE PROTEIN(semi-quant) 1+ (NEGATIVE); URINE UROBILINOGEN Negative (NEGATIVE)
[2020-07-07] VITALS (7 sets, daily range): BP systolic 114–175; BP diastolic 43–55; PULSE 63–80; TEMP 97.5–98.3
[2020-07-07 06:02] LABS: BASO % 0.2 % (0.0-2.0); EOS # 0.1 (0.0-0.7); EOS % 0.9 % (0-4.0); GRAN # 8.6 (1.4-6.5); GRAN % 86.9 % (42.2-75.2); LYMPH # 0.5 (1.2-3.4); LYMPH % 4.9 % (20.0-51.0); MEAN CELL VOLUME 81 fl (80.0-100.0); MEAN CORPUSCULAR HGB CONC 31 g/dl (33.0-37.0); MEAN PLATELET VOLUME 10.5 fl (7.4-10.4); MONO # 0.7 (0.1-0.6); MONO % 6.7 % (1.7-9.3); PLATELET COUNT 217 K/mm3 (130-400); RED BLOOD COUNT 3.09 M/mm3 (4.10-5.30); REDCELL DISTRIBUTION WIDTH-CV 15.2 % (11.5-14.5)
[2020-07-07 06:18] LABS: HEMATOCRIT 25.1 % (37.0-47.0); HEMOGLOBIN 7.8 g/dl (12.5-16.0); MEAN CORPUSCULAR HEMOGLOBIN 25 pg (27.0-31.0)
[2020-07-07 06:19] LABS: CALCIUM 8.3 mg/dL (8.4-10.2); CREATININE, serum 0.53 (0.52-1.25)
[2020-07-08 03:35] VITALS: BP 125/38; PULSE 61; TEMP 98.7
[2020-07-08 07:53] VITALS: BP 151/61; PULSE 62; TEMP 97.7
[2020-07-08 08:28] LABS: BASO # 0.1 (0.0-0.2); BASO % 0.6 % (0.0-2.0); EOS # 0.4 (0.0-0.7); GRAN # 7.3 (1.4-6.5); GRAN % 81.5 % (42.2-75.2); LYMPH # 0.6 (1.2-3.4); LYMPH % 6.6 % (20.0-51.0); MEAN CELL VOLUME 84 fl (80.0-100.0); MEAN CORPUSCULAR HGB CONC 30 g/dl (33.0-37.0); MEAN PLATELET VOLUME 10.1 fl (7.4-10.4); MONO # 0.6 (0.1-0.6); MONO % 6.9 % (1.7-9.3); PLATELET COUNT 247 K/mm3 (130-400); RED BLOOD COUNT 3.43 M/mm3 (4.10-5.30); REDCELL DISTRIBUTION WIDTH-CV 15.2 % (11.5-14.5)
[2020-07-08 08:29] LABS: HEMATOCRIT 28.8 % (37.0-47.0); HEMOGLOBIN 8.7 g/dl (12.5-16.0); MEAN CORPUSCULAR HEMOGLOBIN 25 pg (27.0-31.0)
[2020-07-08 08:36] LABS: CALCIUM 8.4 mg/dL (8.4-10.2); CREATININE, serum 0.62 (0.52-1.25); POTASSIUM 4.1 mmol/L (3.4-5.0)
[2020-07-08] MEDS ORDERED: AMOXICILLIN 8751 TAB PO (10:26)
[2020-07-08] MEDS ORDERED: PROTONIX 40MG T40 MG PO (10:32)
[2020-07-08 11:39] VITALS: BP 135/51; PULSE 60; TEMP 97.8
== END 2020-07-08 15:32 | DRG 811 ==
LOC: COL.ER 17:12 → MEDICAL 18:40
PROVIDERS: Family Medicine; Hospitalist; Internal Medicine Gastroenterology; Nurse Practitioner Family; Physician Assistant
PROC: 0DB98ZX Excision of Duodenum, Via Natural or Artificial Opening Endoscopic, Diagnostic (ICD-10-PCS; 2020-07-04)
PROC: 0DBK8ZZ Excision of Ascending Colon, Via Natural or Artificial Opening Endoscopic (ICD-10-PCS; principal; 2020-07-04 08:30)
PROC: 0DBL8ZZ Excision of Transverse Colon, Via Natural or Artificial Opening Endoscopic (ICD-10-PCS; 2020-07-04 08:30)
DX: D53.9 Nutritional anemia, unspecified (principal); J18.9 Pneumonia, unspecified organism; J96.11 Chronic respiratory failure with hypoxia; E87.1 Hypo-osmolality and hyponatremia; C34.11 Malignant neoplasm of upper lobe, right bronchus or lung; I10 Essential (primary) hypertension; E78.5 Hyperlipidemia, unspecified; I25.10 Atherosclerotic heart disease of native coronary artery without angina pectoris; I48.91 Unspecified atrial fibrillation; J44.9 Chronic obstructive pulmonary disease, unspecified; I27.20 Pulmonary hypertension, unspecified; E87.8 Other disorders of electrolyte and fluid balance, not elsewhere classified; K44.9 Diaphragmatic hernia without obstruction or gangrene; K22.2 Esophageal obstruction; G47.33 Obstructive sleep apnea (adult) (pediatric); K21.9 Gastro-esophageal reflux disease without esophagitis; I25.2 Old myocardial infarction; E87.6 Hypokalemia; R25.1 Tremor, unspecified; K64.0 First degree hemorrhoids; K57.90 Diverticulosis of intestine, part unspecified, without perforation or abscess without bleeding; K63.5 Polyp of colon; Z20.822 Contact with and (suspected) exposure to COVID-19; Z95.5 Presence of coronary angioplasty implant and graft; Z99.81 Dependence on supplemental oxygen; Z79.01 Long term (current) use of anticoagulants; Z90.49 Acquired absence of other specified parts of digestive tract; Z90.710 Acquired absence of both cervix and uterus; Z95.0 Presence of cardiac pacemaker; Z92.3 Personal history of irradiation; Z79.82 Long term (current) use of aspirin; Z87.891 Personal history of nicotine dependence; Z88.1 Allergy status to other antibiotic agents; Z88.8 Allergy status to other drugs, medicaments and biological substances
CPT/HCPCS: 99223-AI; 99232-AI; 99233-AI; 99239; C9113; J0360; J1940; J2405; J2543; J2704; J2765; J3480; J7030; P9016; Q9967

== ENCOUNTER → 2020-07-13 | Outpatient (CLI) | payer MEDICARE, BC, MEDICAID ==
[~2020-07-13] MED LIST changes: +AMOXICILLIN 8751 TAB PO; +CENA K20 MEQ/15 PO; +COLACE 100100 MG/CAP PO; +COMBIRESP; +COUMADIN 3MG3 MG/TAB PO; +MAG-OX 400400 MG/TAB PO; +NATURAL C500 MG; +OXYGEN; +SENOKOT8.6 MG PO; +ZEBETA 5MG5 MG PO
[2020-07-13 18:02] LABS: BASO # 0.1 (0.0-0.2); BASO % 0.9 % (0.0-2.0); EOS # 0.2 (0.0-0.7); EOS % 3.3 % (0-4.0); GRAN # 4.9 (1.4-6.5); LYMPH # 0.8 (1.2-3.4); LYMPH % 12.3 % (20.0-51.0); MEAN CELL VOLUME 82 fl (80.0-100.0); MEAN CORPUSCULAR HGB CONC 30 g/dl (33.0-37.0); MEAN PLATELET VOLUME 9.9 fl (7.4-10.4); MONO # 0.6 (0.1-0.6); MONO % 8.9 % (1.7-9.3); PLATELET COUNT 420 K/mm3 (130-400); RED BLOOD COUNT 3.31 M/mm3 (4.10-5.30); REDCELL DISTRIBUTION WIDTH-CV 15.3 % (11.5-14.5)
[2020-07-13 18:09] LABS: HEMATOCRIT 27.2 % (37.0-47.0); HEMOGLOBIN 8.2 g/dl (12.5-16.0); MEAN CORPUSCULAR HEMOGLOBIN 25 pg (27.0-31.0)
[2020-07-13 18:13] LABS: CALCIUM 8.2 mg/dL (8.4-10.2); CREATININE, serum 0.51 (0.52-1.25); POTASSIUM 3.6 mmol/L (3.4-5.0)
== END ==
LOC: ZLAB.STJ 17:19
PROVIDERS: Internal Medicine
DX: D64.9 Anemia, unspecified (principal)

== ENCOUNTER → 2020-07-17 | Outpatient (CLI) | payer MEDICARE, BC, MEDICAID ==
[2020-07-17 14:06] LABS: CALCIUM 8.8 mg/dL (8.4-10.2); CREATININE, serum 0.48 (0.52-1.25); POTASSIUM 4.7 mmol/L (3.4-5.0)
== END ==
LOC: ZLAB.STJ 13:47
PROVIDERS: Internal Medicine
DX: J44.9 Chronic obstructive pulmonary disease, unspecified (principal)

== ENCOUNTER → 2020-07-26 | Outpatient (REF) ==
[2020-07-26 14:31] LABS: CALCIUM 8.8 mg/dL (8.4-10.2); CREATININE, serum 0.51 (0.52-1.25); POTASSIUM 4.2 mmol/L (3.4-5.0)
== END ==
LOC: ZLAB.STJ 13:57
PROVIDERS: Internal Medicine
DX: C34.11 Malignant neoplasm of upper lobe, right bronchus or lung (principal)

== ENCOUNTER 2020-08-11 14:27 | Outpatient (RCR) | payer MEDICARE, BC, MEDICAID ==
[~2020-08-11] VITALS: Ht 165.1 cm; Wt 66.0 kg
[2020-08-11] VITALS (8 sets, daily range): BP systolic 119–186; BP diastolic 62–87; PULSE 71–87; TEMP 97.8–99
[~2020-08-11 14:27] MED LIST changes: -CENA K20 MEQ/15 PO; -COLACE 100100 MG/CAP PO; -COMBIRESP; -COUMADIN 3MG3 MG/TAB PO; -MAG-OX 400400 MG/TAB PO; -NATURAL C500 MG; -OXYGEN; -SENOKOT8.6 MG PO; -ZEBETA 5MG5 MG PO
--- NOTE | 2020-08-11 17:52 | NUR ---
PT AMB ON ROOM AIR TO BR WITH STEADY GAIT IN ROOM 14. PT IS DYSPNEIC WITH SATS 84% WHEN BACK TO BED, SATS UP TO 90'S ON 2L/NC AFTER RESTING IN BED BRIEFLY.
--- NOTE | 2020-08-11 20:55 | NUR ---
TOLERATED TRANSFUSIONS WELL. IV DC'D WITH CATH INTACT, DRESSING APPLIED. PT TO EXIT VIA WHEELCHAIR.
== END 2020-08-11 20:55 | disposition home or self-care (01) ==
LOC: EUO 14:27
DX: C34.11 Malignant neoplasm of upper lobe, right bronchus or lung (principal); D64.9 Anemia, unspecified
CPT/HCPCS: J7050; P9016

== ENCOUNTER 2020-08-12 07:05 | Emergency (ER) | payer MEDICARE, BC, MEDICAID ==
[~2020-08-12] VITALS: Ht 165.2 cm; Wt 68.2 kg
[2020-08-12 07:06] VITALS: TEMP 96.7
[2020-08-12 07:32] LABS: BASO # 0.1 (0.0-0.2); BASO % 0.9 % (0.0-2.0); EOS # 0.3 (0.0-0.7); EOS % 1.8 % (0-4.0); GRAN # 10.1 (1.4-6.5); GRAN % 72.9 % (42.2-75.2); HEMATOCRIT 42.5 % (37.0-47.0); HEMOGLOBIN 12.7 g/dl (12.5-16.0); LYMPH # 2.7 (1.2-3.4); LYMPH % 19.4 % (20.0-51.0); MEAN CELL VOLUME 87 fl (80.0-100.0); MEAN CORPUSCULAR HEMOGLOBIN 26 pg (27.0-31.0); MEAN CORPUSCULAR HGB CONC 30 g/dl (33.0-37.0); MEAN PLATELET VOLUME 10.3 fl (7.4-10.4); MONO # 0.6 (0.1-0.6); MONO % 4.6 % (1.7-9.3); PLATELET COUNT 326 K/mm3 (130-400); RED BLOOD COUNT 4.88 M/mm3 (4.10-5.30); REDCELL DISTRIBUTION WIDTH-CV 17.7 % (11.5-14.5)
[2020-08-12 07:43] LABS: ALBUMIN 3.8 gm/dL (3.5-5.0); BILIRUBIN,TOTAL 0.2 mg/dL (0.0-1.0); CALCIUM 8.5 mg/dL (8.4-10.2); CREATININE, serum 0.64 (0.52-1.25); POTASSIUM 4.5 mmol/L (3.4-5.0); TOTAL PROTEIN 6.8 gm/dL (6.4-8.2)
[2020-08-12 08:02] LABS: TROPONIN-I 0.085 ng/mL (0.000-0.035)
[2020-08-12 09:20] VITALS: BP 110/57; PULSE 75
== END 2020-08-12 09:45 | disposition short-term general hospital (02) ==
LOC: COL.ER 07:05
PROVIDERS: Emergency Medicine
DX: J81.1 Chronic pulmonary edema (principal); T80.92XA Unspecified transfusion reaction, initial encounter; R91.8 Other nonspecific abnormal finding of lung field; Z88.1 Allergy status to other antibiotic agents; Z88.8 Allergy status to other drugs, medicaments and biological substances; Z79.51 Long term (current) use of inhaled steroids; X58.XXXA Exposure to other specified factors, initial encounter
CPT/HCPCS: C9113; J0330; J2704; J2930; J3010; J7030; J7060

== ENCOUNTER → 2020-09-07 | Outpatient (CLI) | payer MEDICARE, BC, MEDICAID ==
[~2020-09-07] MED LIST changes: +CENA K20 MEQ/15 PO; +COLACE 100100 MG/CAP PO; +COMBIRESP; +COUMADIN 3MG3 MG/TAB PO; +MAG-OX 400400 MG/TAB PO; +NATURAL C500 MG; +OXYGEN; +SENOKOT8.6 MG PO; +ZEBETA 5MG5 MG PO
== END | disposition still patient (30) ==
LOC: COL.PUL 07:00
DX: J96.01 Acute respiratory failure with hypoxia (principal)

== ENCOUNTER → 2020-09-23 | Outpatient (CLI) | payer MEDICARE, BC, MEDICAID ==
[2020-09-23 13:17] LABS: HEMATOCRIT 26.9 % (37.0-47.0); HEMOGLOBIN 8.6 g/dl (12.5-16.0)
[2020-09-23 13:45] LABS: CALCIUM 8.6 mg/dL (8.4-10.2); CREATININE, serum 0.63 (0.52-1.25); POTASSIUM 4.3 mmol/L (3.4-5.0)
== END ==
LOC: ZCOL.LAB 12:20
PROVIDERS: Internal Medicine
DX: D50.9 Iron deficiency anemia, unspecified (principal); I27.20 Pulmonary hypertension, unspecified

== ENCOUNTER 2020-09-30 15:47 | Emergency (ER) | payer MEDICARE, BC, MEDICAID ==
[~2020-09-30] VITALS: Ht 167.6 cm; Wt 65.9 kg
[~2020-09-30 15:47] MED LIST changes: -CENA K20 MEQ/15 PO; -COLACE 100100 MG/CAP PO; -COMBIRESP; -COUMADIN 3MG3 MG/TAB PO; -MAG-OX 400400 MG/TAB PO; -NATURAL C500 MG; -OXYGEN; -SENOKOT8.6 MG PO; -ZEBETA 5MG5 MG PO
[2020-09-30 16:22] VITALS: TEMP 97.5
[2020-09-30 18:10] LABS: ALANINE AMINOTRANSFERASE 11 U/L (4-34); ALBUMIN 3.7 gm/dL (3.5-5.0); ALKALINE PHOSPHATASE 67 U/L (50-136); ANION GAP 4 mmol/L (7-16); AST,SGOT 21 U/L (15-37); BILIRUBIN,TOTAL < 0.1 mg/dL (0.0-1.0); BLOOD UREA NITROGEN 12 mg/dL (7-17); CALCIUM 8.5 mg/dL (8.4-10.2); CARBON DIOXIDE 37 mmol/L (22-30); CREATININE, serum 0.55 (0.52-1.25); GLUCOSE 130 mg/dL (74-106); POTASSIUM 4.2 mmol/L (3.4-5.0); TOTAL PROTEIN 6.1 gm/dL (6.4-8.2)
[2020-09-30] MEDS ORDERED: MAG-OX 400400 MG/TAB PO (18:13)
[2020-09-30] MEDS ORDERED: ZEBETA 5MG5 MG PO (18:15)
[2020-09-30] MEDS ORDERED: NATURAL C500 MG (18:15)
[2020-09-30] MEDS ORDERED: SENOKOT8.6 MG PO (18:16)
[2020-09-30] MEDS ORDERED: CORGARD20 MG PO (18:18)
[2020-09-30] MEDS ORDERED: PEPCID 20MG TAB20 MG PO (18:19)
[2020-09-30] MEDS ORDERED: COLACE 100100 MG/CAP PO (18:19)
[2020-09-30] MEDS ORDERED: CENA K20 MEQ/15 PO (18:21)
[2020-09-30] MEDS ORDERED: OXYGEN (18:22)
[2020-09-30 18:23] LABS: CHLORIDE 75 mmol/L (98-107); SODIUM 116 mmol/L (137-145)
[2020-09-30 18:34] LABS: OSMOLALITY-SERUM 255 Osm/kg (275-300)
[2020-09-30 18:54] LABS: BASO # 0.1 (0.0-0.2); BASO % 0.6 % (0.0-2.0); EOS # 0.1 (0.0-0.7); EOS % 0.7 % (0-4.0); GRAN # 9.7 (1.4-6.5); GRAN % 77.6 % (42.2-75.2); LYMPH # 1.3 (1.2-3.4); LYMPH % 10.6 % (20.0-51.0); MEAN CELL VOLUME 90 fl (80.0-100.0); MEAN CORPUSCULAR HGB CONC 33 g/dl (33.0-37.0); MEAN PLATELET VOLUME 9.4 fl (7.4-10.4); MONO # 1.2 (0.1-0.6); MONO % 9.9 % (1.7-9.3); PLATELET COUNT 393 K/mm3 (130-400); RED BLOOD COUNT 2.69 M/mm3 (4.10-5.30); REDCELL DISTRIBUTION WIDTH-CV 15.7 % (11.5-14.5)
[2020-09-30 18:55] LABS: HEMATOCRIT 24.1 % (37.0-47.0); HEMOGLOBIN 7.9 g/dl (12.5-16.0); MEAN CORPUSCULAR HEMOGLOBIN 29 pg (27.0-31.0)
[2020-10-01 01:20] VITALS: BP 150/60; PULSE 65
== END 2020-10-01 01:20 | disposition short-term general hospital (02) ==
LOC: COL.ER 15:47
PROVIDERS: Family Medicine
DX: E87.1 Hypo-osmolality and hyponatremia (principal); J44.9 Chronic obstructive pulmonary disease, unspecified; I25.2 Old myocardial infarction; I10 Essential (primary) hypertension; E03.9 Hypothyroidism, unspecified; Z87.891 Personal history of nicotine dependence; Z79.51 Long term (current) use of inhaled steroids
CPT/HCPCS: J7030

== ENCOUNTER → 2020-09-30 | Outpatient (CLI) | payer MEDICARE, BC, MEDICAID ==
[2020-09-30 14:55] LABS: CALCIUM 8.1 mg/dL (8.4-10.2); CREATININE, serum 0.5 (0.52-1.25); POTASSIUM 3.6 mmol/L (3.4-5.0)
[2020-09-30 15:25] LABS: THYROID STIMULATING HORMONE 3.26 uIU/mL (0.465-4.680)
== END ==
LOC: ZLAB.STJ 14:40 → EDSTATUS 16:20
PROVIDERS: Internal Medicine
DX: E03.9 Hypothyroidism, unspecified (principal); I10 Essential (primary) hypertension

== ENCOUNTER → 2020-10-05 | Outpatient (CLI) | payer MEDICARE, BC, MEDICAID ==
[~2020-10-05] MED LIST changes: +CENA K20 MEQ/15 PO; +COLACE 100100 MG/CAP PO; +COMBIRESP; +COUMADIN 3MG3 MG/TAB PO; +MAG-OX 400400 MG/TAB PO; +NATURAL C500 MG; +OXYGEN; +SENOKOT8.6 MG PO; +ZEBETA 5MG5 MG PO
[2020-10-05 07:44] LABS: ARTERIAL BLD GAS O2 SATURATION 96.1 % (92-100); ARTERIAL BLD GAS TCO2 CT 37.1; ARTERIAL BLOOD GAS BASE EXCESS 10.2 (-2-2); ARTERIAL BLOOD GAS HCO3 35.5 meq/L (22-26); ARTERIAL BLOOD GAS PCO2 52.5 mmHg (35-45); ARTERIAL BLOOD GAS PO2 82.4 mmHg (80-100); ARTERIAL BLOOD GAS pH 7.45 (7.35-7.45)
--- NOTE | 2020-10-05 11:22 | NUR ---
PATIENT REFUSING PFT, DOES NOT WANT TEST AND DOES NOT WANT TO BE IN A BOX. ASKED IF IT WOULD BE BETTER TO PREFORM TEST WITH BOX OPEN THAT IS AN OPTION. PATIENT STILL WAS REFUSING TEST.
== END ==
LOC: COL.PUL 07:14
PROVIDERS: Internal Medicine Pulmonary Disease
DX: J96.01 Acute respiratory failure with hypoxia (principal)

== ENCOUNTER 2020-10-18 03:49 | Inpatient (IN) | payer MEDICARE, BC, MEDICAID ==
[~2020-10-18] VITALS: Ht 167.6 cm; Wt 66.1 kg
[~2020-10-18 03:49] MED LIST changes: -COMBIRESP; -COUMADIN 3MG3 MG/TAB PO
[2020-10-18 04:53] LABS: BASO # 0.1 (0.0-0.2); EOS # 0.2 (0.0-0.7); EOS % 2.6 % (0-4.0); GRAN # 3.9 (1.4-6.5); GRAN % 64.9 % (42.2-75.2); HEMOGLOBIN 11.2 g/dl (12.5-16.0); LYMPH # 1.2 (1.2-3.4); LYMPH % 20.3 % (20.0-51.0); MEAN CELL VOLUME 93 fl (80.0-100.0); MEAN CORPUSCULAR HEMOGLOBIN 30 pg (27.0-31.0); MEAN CORPUSCULAR HGB CONC 32 g/dl (33.0-37.0); MEAN PLATELET VOLUME 9.7 fl (7.4-10.4); MONO # 0.6 (0.1-0.6); MONO % 10.5 % (1.7-9.3); PLATELET COUNT 243 K/mm3 (130-400); REDCELL DISTRIBUTION WIDTH-CV 14.1 % (11.5-14.5)
[2020-10-18 04:54] LABS: HEMATOCRIT 35.3 % (37.0-47.0)
[2020-10-18 05:00] LABS: ALANINE AMINOTRANSFERASE 12 U/L (4-34); ALBUMIN 3.8 gm/dL (3.5-5.0); ALKALINE PHOSPHATASE 73 U/L (50-136); ANION GAP 4 mmol/L (7-16); AST,SGOT 22 U/L (15-37); BILIRUBIN,TOTAL 0.2 mg/dL (0.0-1.0); BLOOD UREA NITROGEN 7 mg/dL (7-17); CALCIUM 9.3 mg/dL (8.4-10.2); CARBON DIOXIDE 29 mmol/L (22-30); CHLORIDE 97 mmol/L (98-107); CREATININE, serum 0.44 (0.52-1.25); GLUCOSE 98 mg/dL (74-106); POTASSIUM 3.9 mmol/L (3.4-5.0); SODIUM 130 mmol/L (137-145); TOTAL PROTEIN 6.3 gm/dL (6.4-8.2)
[2020-10-18 05:24] LABS: TROPONIN-I < 0.012 ng/mL (0.000-0.035)
[2020-10-18 12:41] LABS: MAGNESIUM 1.5 mg/dL (1.6-2.3)
[2020-10-18 13:12] LABS: TROPONIN-I < 0.012 ng/mL (0.000-0.035)
[2020-10-18] MEDS ORDERED: COMBIRESP (15:47)
[2020-10-18] MEDS ORDERED: LIPITOR 10MG10 MG PO (16:12)
[2020-10-18] MEDS ORDERED: ZOLOFT 25MG25 MG PO (16:13)
[2020-10-18 17:20] VITALS: BP 141/47; PULSE 65; TEMP 97.8
[2020-10-19] VITALS (16 sets, daily range): BP systolic 103–169; BP diastolic 33–70; PULSE 60–110; TEMP 97.7–98.7
--- NOTE | 2020-10-19 05:07 | NUR ---
AT APPROXIMATELY 2030 PT C/O CHEST PAIN AFTER ALBUTEROL BREATHING TREATMENT. THIS NURSE EXPLAINED TO NURSE THAT ALBUTEROL MAY INCREASE HEART RATE, PT CONTINUED TO C/O CHEST PAIN SHORTLY AFTER, THIS NURSE RAN VITALS. BP 157/45, 02 2L 100 PERCENT, PT DISPLAYS DYSPNEA ON EXTERTION. PT REPORTS CHEST PAIN 8/10, MORPHINE ADMINISTERED PRESCRIBED, UPON F/U PT REPORTS CHEST PAIN AT 3/10, PT STATES " I FEEL BETTER". NURSE WILL CONTINUE TO MONITOR. CALL LIGHT WITHIN REACH.
[2020-10-19 07:21] LABS: ANION GAP 5 mmol/L (7-16); BLOOD UREA NITROGEN 11 mg/dL (7-17); CALCIUM 9.4 mg/dL (8.4-10.2); CARBON DIOXIDE 29 mmol/L (22-30); CHLORIDE 94 mmol/L (98-107); CREATININE, serum 0.54 (0.52-1.25); GLUCOSE 85 mg/dL (74-106); SODIUM 128 mmol/L (137-145)
[2020-10-19 07:41] LABS: BASO # 0.1 (0.0-0.2); BASO % 0.9 % (0.0-2.0); EOS # 0.1 (0.0-0.7); EOS % 1.3 % (0-4.0); GRAN # 4.5 (1.4-6.5); GRAN % 64.2 % (42.2-75.2); HEMATOCRIT 38.4 % (37.0-47.0); HEMOGLOBIN 12.3 g/dl (12.5-16.0); LYMPH # 1.6 (1.2-3.4); MEAN CELL VOLUME 93 fl (80.0-100.0); MEAN CORPUSCULAR HEMOGLOBIN 30 pg (27.0-31.0); MEAN CORPUSCULAR HGB CONC 32 g/dl (33.0-37.0); MEAN PLATELET VOLUME 10.7 fl (7.4-10.4); MONO # 0.8 (0.1-0.6); MONO % 11.2 % (1.7-9.3); PLATELET COUNT 212 K/mm3 (130-400); RED BLOOD COUNT 4.13 M/mm3 (4.10-5.30); REDCELL DISTRIBUTION WIDTH-CV 13.9 % (11.5-14.5)
[2020-10-19 07:43] LABS: TROPONIN-I < 0.012 ng/mL (0.000-0.035)
--- NOTE | 2020-10-19 09:05 | NUR ---
Patient has had no complaints this morning. This RN assisted her to the bathroom and patient did well, did not need any assistance with standing or walking. This RN stood by to examine how the patient did. Patient did have some difficulty with having a BM, she feels constipated. This RN gave the patient her morning meds, including a docusate and sennoside, this will hopefully help the patient have a BM. Patient stated it is normal for her to not have a BM everyday, that sometimes it will be 2-3days before she has one. She is not experiencing any abdomen pain or tenderness. This RN received a call from ELENA Quesada instructing to keep the patient NPO for a possible stress test. We are waiting for cardiology to see the patient before it is known what exactly will occur. This RN was instructed to give the morning meds, but hold the beta blockers. Patient was told why she is NPO and that she will be able to eat once any tests are done by cardiology. Patient verbalized understanding and remains resting in bed.
--- NOTE | 2020-10-19 10:20 | NUR ---
MANUELA attended clinical rounds. The patient may be able to d/c today, pending cardio's recs. MANUELA attempted to contact the patient's daughter, Vonnie Chan (ph#[phone]), to discuss discharge plan. MANUELA left her a voicemail. MANUELA then contacted the patient's son, Juan Manuel (ph#[phone]), to complete intake. The patient resides at [facility] [place]. Her PCP is Dr. Rosa Gaytan and her DPOA-HC is in EMR. It designates her daughter, Vonnie, and the alternate is her son, Juan Manuel. Juan Manuel reports that the patient is on continuous oxygen at [facility]. Juan Manuel reports that the plan is for the patient to return back to [facility] upon discharge. MANUELA contacted and faxed updates to Va[facility] at [facility]. MANUELA to continue to follow. *Discharge plan: [facility]*
[2020-10-19 14:06] LABS: PARTIAL THROMBOPLASTIN TIME 32.3 SECONDS (26.0-37.0)
--- NOTE | 2020-10-20 01:34 | NUR ---
HEP GTT STOPPED AT 2100 UNTIL 2200 PER PROTOCOL. AT 2200 HEP GTT REDUCED FROM 1200ML/HR TO 950ML/HR PER PROTOCOL. NEXT HEPXA SCHEDULED LAB AT 0400. THIS NURSE REVIEWED AFOREMENTIONED INFORMATION WITH PT. PT VERBALIZES UNDERSTANDING. NURSE WILL CONTINUE TO MONITOR. CALL LIGHT WITHIN REACH.
[2020-10-20 03:57] VITALS: BP 187/72; PULSE 91; TEMP 98.3
--- NOTE | 2020-10-20 05:25 | NUR ---
COMPA CONTACTED THIS NURSE TO INFORM NURSE OF 189 SYSTOLIC BP,PT ASYMPTOMATIC. UPON F/U PT BP 158. NURSE WILL CONTINUE TO MONITOR. CALL LIGHT WITHIN REACH.
[2020-10-20 07:22] VITALS: BP 137/39; PULSE 70; TEMP 97.7
--- NOTE | 2020-10-20 08:00 | NUR ---
Pt awake and alert upon entry to room, no C/O pain at this time. Shgift assessments complete, left Pt call light in reach, bed in lowest position.
--- NOTE | 2020-10-20 09:35 | NUR ---
Initial visit; Patient states she is doing well and thanked Group Home Paraprofessional for looking in on her and offering God's blessings.
[2020-10-20 11:37] VITALS: BP 140/53; PULSE 75; TEMP 97.9
--- NOTE | 2020-10-20 14:11 | NUR ---
MANUELA contacted and faxed updates to Va[facility] at [facility].
[2020-10-20 15:46] VITALS: BP 164/61; PULSE 86; TEMP 98.2
[2020-10-20 20:27] VITALS: BP 145/109; PULSE 98; TEMP 98.4
[2020-10-20 23:48] VITALS: BP 164/59; PULSE 76; TEMP 97.6
[2020-10-21 02:51] LABS: BASO % 0.6 % (0.0-2.0); EOS % 0.6 % (0-4.0); GRAN # 3.2 (1.4-6.5); GRAN % 66.5 % (42.2-75.2); HEMATOCRIT 31.5 % (37.0-47.0); HEMOGLOBIN 10.1 g/dl (12.5-16.0); LYMPH # 1.1 (1.2-3.4); LYMPH % 22.2 % (20.0-51.0); MEAN CELL VOLUME 92 fl (80.0-100.0); MEAN CORPUSCULAR HEMOGLOBIN 30 pg (27.0-31.0); MEAN CORPUSCULAR HGB CONC 32 g/dl (33.0-37.0); MEAN PLATELET VOLUME 9.8 fl (7.4-10.4); MONO # 0.5 (0.1-0.6); MONO % 9.9 % (1.7-9.3); PLATELET COUNT 206 K/mm3 (130-400); RED BLOOD COUNT 3.41 M/mm3 (4.10-5.30); REDCELL DISTRIBUTION WIDTH-CV 13.7 % (11.5-14.5)
[2020-10-21 03:02] LABS: CALCIUM 8.8 mg/dL (8.4-10.2); CREATININE, serum 0.46 (0.52-1.25); POTASSIUM 3.8 mmol/L (3.4-5.0)
--- NOTE | 2020-10-21 03:15 | NUR ---
HEP GTT RATE CHANGED, INFUSING AT 1100 UNITS/HR FROM PREVIOUS 1200 UNITS/HR PER PROTOCOL. THIS NURSE CONTACTED HOSPITALIST TO CHECK DC STATUS PRIOR TO 829 NATALI/CARDIOVERSION PROCEDURE, RECOMMENDATION TO CONTACT CARDIOLOGY PRIOR TO PROCEDUE. THIS NURSE WILL F/U.
[2020-10-21 04:25] VITALS: BP 111/55; PULSE 98; TEMP 98
--- NOTE | 2020-10-21 05:47 | NUR ---
THIS NURSE CONTACTED WIRE STITCHER SEAT SCOOPER MACHINE TO INFORM/SEEK GUIDANCE OF HEPARIN DRIP INFUSION STATUS PRIOR TO PROCEDURE. CARDIO. RECOMMENDS KEEPING INFUSION ON "ANTICOGULATION IS NECESSARY", HEP GTT CONTINUES TO INFUSE AT 1100 HOURS.
[2020-10-21 07:31] VITALS: BP 142/49; PULSE 73; TEMP 98
--- NOTE | 2020-10-21 08:00 | NUR ---
PT TAKEN DOWN FOR PROCEDURE
[2020-10-21 09:56] VITALS: BP 133/52; PULSE 70
--- NOTE | 2020-10-21 09:56 | NUR ---
PT RETURNED TO ROOM, HOOKED UP TO POST OP VITALS, AOX4, OBTAINED DIET ORDER AND HELPED PT ORDER FOOD. ADMINISTERED MORNING MEDICATIONS, NO OTHER NEEDS
[2020-10-21 10:11] VITALS: BP 122/51; PULSE 69
[2020-10-21 10:26] VITALS: BP 142/62; PULSE 67
--- NOTE | 2020-10-21 11:21 | NUR ---
REMOVED HEPARIN DRIP FROM PT AFTER RECIEVING VERBAL ORDERS FROM DR. BRAY
[2020-10-21] MEDS ORDERED: COUMADIN 3MG3 MG/TAB PO (11:38)
[2020-10-21 11:46] VITALS: BP 167/61; PULSE 77; TEMP 97.6
--- NOTE | 2020-10-21 13:05 | NUR ---
The patient is to discharge today, 10/21, back to [facility]. Transportation was scheduled at 1500, via [facility]. MANUELA informed the patient, her RN, and son (Juan Manuel) of the time. They were all agreeable to the time. MANUELA met with the patient and presented and read the IM form outloud to her. The patient verbalized understanding and gave SW approval to sign the form on her behalf. MANUELA provided her with a copy. No additional needs at this time.
--- NOTE | 2020-10-21 13:34 | NUR ---
REPORT GIVEN TO [facility] [place].
--- NOTE | 2020-10-21 16:02 | NUR ---
TELE REMOVED, IV TAKEN OUT, PT ESCORTED OUT VIA WHEELCHAIR
== END 2020-10-21 16:03 | DRG 191 ==
LOC: COL.ER 03:49 → MEDICAL 06:20
PROVIDERS: Personal Emergency Response Attendant; Physician Assistant; ADMIT Student in an Organized Health Care Education/Training Program
DX: J44.1 Chronic obstructive pulmonary disease with (acute) exacerbation (principal); J96.11 Chronic respiratory failure with hypoxia; E87.1 Hypo-osmolality and hyponatremia; I10 Essential (primary) hypertension; I48.91 Unspecified atrial fibrillation; I25.10 Atherosclerotic heart disease of native coronary artery without angina pectoris; I27.20 Pulmonary hypertension, unspecified; G47.33 Obstructive sleep apnea (adult) (pediatric); K21.9 Gastro-esophageal reflux disease without esophagitis; E78.5 Hyperlipidemia, unspecified; E83.42 Hypomagnesemia; R07.9 Chest pain, unspecified; I25.2 Old myocardial infarction; G25.0 Essential tremor; D64.9 Anemia, unspecified; Z95.5 Presence of coronary angioplasty implant and graft; Z20.822 Contact with and (suspected) exposure to COVID-19; Z79.01 Long term (current) use of anticoagulants; Z99.81 Dependence on supplemental oxygen; Z85.118 Personal history of other malignant neoplasm of bronchus and lung; Z79.82 Long term (current) use of aspirin; Z87.891 Personal history of nicotine dependence; Z88.8 Allergy status to other drugs, medicaments and biological substances; Z88.1 Allergy status to other antibiotic agents; Z95.810 Presence of automatic (implantable) cardiac defibrillator
CPT/HCPCS: 99233-AI; 99239; A9500; G0378; J1644; J1940; J1956; J2270; J2785; J2930; J3475; J7512; Q9967

== ENCOUNTER 2020-11-02 17:11 | Emergency (ER) | payer MEDICARE, BC, MEDICAID ==
[~2020-11-02] VITALS: Ht 165.1 cm; Wt 65.9 kg
[~2020-11-02 17:11] MED LIST changes: +COMBIRESP; +COUMADIN 3MG3 MG/TAB PO
[2020-11-02 17:23] VITALS: TEMP 97.9
[2020-11-02 18:25] LABS: BASO # 0.1 (0.0-0.2); EOS # 0.1 (0.0-0.7); EOS % 1.6 % (0-4.0); GRAN # 4.2 (1.4-6.5); GRAN % 66.5 % (42.2-75.2); HEMOGLOBIN 10.3 g/dl (12.5-16.0); LYMPH # 1.3 (1.2-3.4); LYMPH % 20.3 % (20.0-51.0); MEAN CELL VOLUME 93 fl (80.0-100.0); MEAN CORPUSCULAR HEMOGLOBIN 30 pg (27.0-31.0); MEAN CORPUSCULAR HGB CONC 32 g/dl (33.0-37.0); MEAN PLATELET VOLUME 9.9 fl (7.4-10.4); MONO # 0.7 (0.1-0.6); MONO % 10.3 % (1.7-9.3); PLATELET COUNT 234 K/mm3 (130-400); RED BLOOD COUNT 3.49 M/mm3 (4.10-5.30); REDCELL DISTRIBUTION WIDTH-CV 13.5 % (11.5-14.5)
[2020-11-02 18:27] LABS: HEMATOCRIT 32.3 % (37.0-47.0)
[2020-11-02 18:34] LABS: ALANINE AMINOTRANSFERASE 15 U/L (4-34); ALBUMIN 3.5 gm/dL (3.5-5.0); ALKALINE PHOSPHATASE 70 U/L (50-136); ANION GAP 3 mmol/L (7-16); AST,SGOT 20 U/L (15-37); BILIRUBIN,TOTAL 0.1 mg/dL (0.0-1.0); BLOOD UREA NITROGEN 16 mg/dL (7-17); CALCIUM 8.5 mg/dL (8.4-10.2); CARBON DIOXIDE 28 mmol/L (22-30); CHLORIDE 99 mmol/L (98-107); CREATININE, serum 0.72 (0.52-1.25); GLUCOSE 103 mg/dL (74-106); POTASSIUM 4.6 mmol/L (3.4-5.0); SODIUM 130 mmol/L (137-145); TOTAL PROTEIN 6.2 gm/dL (6.4-8.2)
[2020-11-02 18:46] LABS: TROPONIN-I < 0.012 ng/mL (0.000-0.035)
[2020-11-02 20:33] LABS: INR 1.4 (0.8-3.0); PROTHROMBIN TIME 15.6 SECONDS (9.7-12.8)
[2020-11-02 20:57] VITALS: BP 136/69; PULSE 83
== END 2020-11-02 21:04 | disposition home or self-care (01) ==
LOC: COL.ER 17:11
PROVIDERS: Personal Emergency Response Attendant
DX: J44.1 Chronic obstructive pulmonary disease with (acute) exacerbation (principal); I48.91 Unspecified atrial fibrillation; I25.10 Atherosclerotic heart disease of native coronary artery without angina pectoris; I10 Essential (primary) hypertension; E78.5 Hyperlipidemia, unspecified; Z87.891 Personal history of nicotine dependence; Z79.899 Other long term (current) drug therapy; Z79.01 Long term (current) use of anticoagulants; Z79.51 Long term (current) use of inhaled steroids
CPT/HCPCS: J2930

== ENCOUNTER → 2020-11-08 | Outpatient (CLI) | payer MEDICARE, BC, MEDICAID ==
[2020-11-08 12:29] LABS: HEMOGLOBIN 10.1 g/dl (12.5-16.0)
[2020-11-08 12:31] LABS: HEMATOCRIT 32.3 % (37.0-47.0)
== END ==
LOC: ZLAB.STJ 12:14
PROVIDERS: Internal Medicine
DX: D64.9 Anemia, unspecified (principal)

== ENCOUNTER → 2020-11-22 | Outpatient (CLI) | payer MEDICARE, BC, MEDICAID ==
[2020-11-22 13:33] LABS: HEMATOCRIT 35.2 % (37.0-47.0)
== END ==
LOC: ZLAB.STJ 13:04
PROVIDERS: Internal Medicine
DX: D50.9 Iron deficiency anemia, unspecified (principal)

== ENCOUNTER → 2020-12-07 | Outpatient (CLI) | payer MEDICARE, BC, MEDICAID ==
[2020-12-07 12:44] LABS: HEMOGLOBIN 11.1 g/dl (12.5-16.0)
[2020-12-07 12:45] LABS: HEMATOCRIT 34.9 % (37.0-47.0)
== END ==
LOC: ZLAB.STJ 12:31
PROVIDERS: Internal Medicine
DX: D50.9 Iron deficiency anemia, unspecified (principal)

== ENCOUNTER → 2021-03-17 | Outpatient (CLI) | payer MEDICARE, BC, MEDICAID ==
[2021-03-17 16:21] LABS: BASO # 0.1 K/mm3 (0.0-0.2); BASO % 1.3 % (0.0-2.0); EOS # 0.2 K/mm3 (0.0-0.7); EOS % 3.5 % (0-4.0); GRAN # 3.8 K/mm3 (1.4-6.5); LYMPH # 0.9 K/mm3 (1.2-3.4); LYMPH % 15.7 % (20.0-51.0); MEAN CELL VOLUME 97 fl (80.0-100.0); MEAN CORPUSCULAR HGB CONC 31 g/dl (33.0-37.0); MEAN PLATELET VOLUME 10.8 fl (7.4-10.4); MONO # 0.4 K/mm3 (0.1-0.6); MONO % 8.1 % (1.7-9.3); PLATELET COUNT 253 K/mm3 (130-400); RED BLOOD COUNT 3.13 M/mm3 (4.10-5.30); REDCELL DISTRIBUTION WIDTH-CV 13.1 % (11.5-14.5)
[2021-03-17 16:23] LABS: HEMATOCRIT 30.3 % (37.0-47.0); HEMOGLOBIN 9.4 g/dl (12.5-16.0); MEAN CORPUSCULAR HEMOGLOBIN 30 pg (27.0-31.0)
[2021-03-17 16:35] LABS: ALBUMIN 3.2 gm/dL (3.4-4.8); BILIRUBIN,TOTAL 0.2 mg/dL (0.2-1.2); CALCIUM 8.4 mg/dL (8.4-10.2); CREATININE, serum 0.73 mg/dL (0.57-1.11); POTASSIUM 5.1 mmol/L (3.5-4.5); TOTAL PROTEIN 5.8 gm/dL (6.2-8.1)
== END ==
LOC: ZLAB.STJ 15:57
PROVIDERS: Internal Medicine
DX: Z13.29 Encounter for screening for other suspected endocrine disorder (principal); Z79.01 Long term (current) use of anticoagulants; M81.0 Age-related osteoporosis without current pathological fracture

== ENCOUNTER → 2021-04-26 | Outpatient (CLI) | payer MEDICARE, BC, MEDICAID ==
[2021-04-26 22:47] LABS: CREATININE, serum 0.67 mg/dL (0.57-1.11); POTASSIUM 4.2 mmol/L (3.5-4.5)
== END ==
LOC: ZLAB.STJ 21:45
PROVIDERS: Internal Medicine
DX: N18.30 Chronic kidney disease, stage 3 unspecified (principal)

== ENCOUNTER → 2021-06-28 | Outpatient (CLI) | payer MEDICARE, BC, MEDICAID ==
[~2021-06-28] MED LIST changes: +COMBIRESP IH; +COUMADIN 6MG6 MG/TAB PO; +D3-5050000 IU PO; +FERROUSAL325 MG PO; +FLEXERIL 1010 MG/TAB PO; +IPRATROPIUM BROM3 M1 IH; +PRINIVIL2.5 MG PO; +SENNA-LAX8.6 MG PO; +SEROQUEL 2525 MG/TAB PO; +TIKOSYN0.125 MG PEG; +TUMS500 MG PO
[2021-06-28 15:17] LABS: CALCIUM 8.3 mg/dL (8.4-10.2); CREATININE, serum 0.75 mg/dL (0.57-1.11)
== END ==
LOC: ZLAB.STJ 14:37
PROVIDERS: Internal Medicine
DX: I50.9 Heart failure, unspecified (principal)

== ENCOUNTER → 2021-08-02 | Outpatient (CLI) | payer MEDICARE, BC, MEDICAID ==
[2021-08-02 19:15] LABS: CALCIUM 7.9 mg/dL (8.4-10.2); CREATININE, serum 0.67 mg/dL (0.57-1.11); POTASSIUM 3.6 mmol/L (3.5-4.5)
== END ==
LOC: ZLAB.STJ 17:41
PROVIDERS: Pediatrics Pediatric Emergency Medicine
DX: Z01.89 Encounter for other specified special examinations (principal)

== ENCOUNTER → 2021-08-30 | Outpatient (CLI) | payer MEDICARE, BC, MEDICAID ==
[2021-08-30 13:27] LABS: CALCIUM 8.2 mg/dL (8.4-10.2); CREATININE, serum 0.69 mg/dL (0.57-1.11)
[2021-08-30 13:33] LABS: POTASSIUM 4.4 mmol/L (3.5-4.5)
== END ==
LOC: ZLAB.STJ 12:43
PROVIDERS: Pediatrics Pediatric Emergency Medicine
DX: I25.10 Atherosclerotic heart disease of native coronary artery without angina pectoris (principal)

== ENCOUNTER → 2021-09-27 | Outpatient (CLI) | payer MEDICARE, BC, MEDICAID ==
[2021-09-28 11:53] LABS: CALCIUM 8.7 mg/dL (8.4-10.2); CREATININE, serum 0.67 mg/dL (0.57-1.11); POTASSIUM 4.6 mmol/L (3.5-4.5)
== END ==
LOC: ZCOL.LAB 20:55
PROVIDERS: Internal Medicine
DX: I50.9 Heart failure, unspecified (principal); I10 Essential (primary) hypertension

== ENCOUNTER → 2021-10-03 | Outpatient (CLI) | payer MEDICARE, BC, MEDICAID | LOC: ZLAB.STJ 14:57 | DX: E03.9 Hypothyroidism, unspecified (principal) ==